=== PATIENT | female | born 1945 | race Caucasian/White ===

== ENCOUNTER 2016-11-01 05:23 | Emergency (ER) | payer OTHER ==
[~2016-11-01] VITALS: Ht 167.6 cm; Wt 127.0 kg
[~2016-11-01 05:23] MED LIST: NORPTMEDS CO
[2016-11-01 06:03] LABS: Basophils # (auto) 0 uL; Basophils % (auto) 0.1 % (0.0-2.0); Eosinophils # (auto) 0.2 uL; Eosinophils % (auto) 2.1 % (0.0-7.0); Hematocrit 33.3 % (36.0-46.0); Hemoglobin 11.1 g/dL (12.2-16.2); Mean Corpuscular Hemoglobin 30.6 pg (28.0-32.0); Mean Corpuscular Hgb Conc. 33.3 g/dL (32.0-36.0); Mean Corpuscular Volume 91.6 fL (80.0-100.0); Mean Platelet Volume 7.8 fL (7.4-10.4); Monocytes # (auto) 0.8 uL; Monocytes % (auto) 7.9 % (0.0-12.0); Neutrophils # (auto) 8.3 uL; Neutrophils % (auto) 79.9 % (37.0-80.0); Platelet Count (auto) 409 10^3/uL (140-450); Red Cell Distribution Width 14.6 % (11.6-16.0); White Blood Cell 10.3 10^3/uL (4.4-10.8)
[2016-11-01 06:22] LABS: INR 0.99 (0.9-1.15); Partial Thromboplastin Time 29.4 sec (22.64-33.71); Prothrombin Time 10.8 sec (9.37-12.3)
[2016-11-01 06:33] LABS: Albumin 2.3 g/dL (3.4-5.0); Amylase 12 U/L (25-115); Anion Gap 13 (5-15); Aspartate Aminotransferase 9 U/L (15-37); BUN/Creatinine Ratio 11.7; Blood Urea Nitrogen 13 mg/dL (7-18); Calcium 8.4 mg/dL (8.5-10.1); Carbon Dioxide 26 mmol/L (21-32); Chloride 103 mmol/L (98-107); GFR African American 63 mL/min; GFR Non-African American 52 mL/min; Glucose 96 mg/dL (74-106); Sodium 142 mmol/L (136-145)
[2016-11-01 06:38] LABS: Alkaline Phosphatase 83 U/L (45-117); Bilirubin, Total 0.2 mg/dL (0.2-1.0); Total Protein 7.2 g/dL (6.4-8.2)
[2016-11-01 08:48] VITALS: BP 143/80
== END 2016-11-01 09:14 | disposition home or self-care (01) ==
LOC: ER 05:23 → EDBD 05:23 → ER 09:14
DX: K43.5 Parastomal hernia without obstruction or gangrene (principal); M19.90 Unspecified osteoarthritis, unspecified site; E78.5 Hyperlipidemia, unspecified; I10 Essential (primary) hypertension; E07.9 Disorder of thyroid, unspecified; Z90.49 Acquired absence of other specified parts of digestive tract; Z88.1 Allergy status to other antibiotic agents; Z93.3 Colostomy status; E66.01 Morbid (severe) obesity due to excess calories; Z68.42 Body mass index [BMI] 45.0-49.9, adult; Z87.19 Personal history of other diseases of the digestive system
CPT/HCPCS: 36415; 74176; 80053; 82150; 83605; 83690; 84484; 85025; 85610; 85730; 87040

== ENCOUNTER 2016-11-16 14:40 | Emergency (ER) | payer OTHER ==
[~2016-11-16] VITALS: Ht 165.1 cm; Wt 127.0 kg
[2016-11-16 15:38] LABS: Basophils # (auto) 0.1 uL; Basophils % (auto) 0.6 % (0.0-2.0); CONDITION AutoValidated; Eosinophils # (auto) 0.2 uL; Eosinophils % (auto) 1.5 % (0.0-7.0); Hematocrit 38.8 % (36.0-46.0); Hemoglobin 12.8 g/dL (12.2-16.2); Lymphocytes # (auto) 1.1 uL; Lymphocytes % (auto) 11.1 % (10.0-50.0); Mean Corpuscular Hgb Conc. 32.9 g/dL (32.0-36.0); Mean Corpuscular Volume 91.2 fL (80.0-100.0); Mean Platelet Volume 8.5 fL (7.4-10.4); Monocytes % (auto) 9.5 % (0.0-12.0); Neutrophils # (auto) 7.9 uL; Neutrophils % (auto) 77.3 % (37.0-80.0); Platelet Count (auto) 438 10^3/uL (140-450); Red Cell Distribution Width 15.4 % (11.6-16.0); White Blood Cell 10.3 10^3/uL (4.4-10.8)
[2016-11-16 16:00] LABS: BUN/Creatinine Ratio 15.4; Calcium 8.6 mg/dL (8.5-10.1)
[2016-11-16 19:34] VITALS: BP 133/72
[2016-11-16 21:47] LABS: Urine Bilirubin Negative (Negative); Urine Color Yellow (Yellow); Urine Glucose Normal (Normal); Urine Ketone Negative (Negative); Urine Mucus FEW (None Seen); Urine Nitrite Negative (Negative); Urine RBC 1 /hpf (0 - 4); Urine Squamous Epithelial Cell MOD /hpf (<5); Urine Urobilinogen Normal (Negative); Urine pH 5.5 (5.0-8.0)
[2016-11-16 22:04] LABS: Urine Blood 1+ /uL (Negative)
== END 2016-11-16 21:30 | disposition home or self-care (01) ==
LOC: EDBD 14:40 → ER 14:40
DX: L03.311 Cellulitis of abdominal wall (principal); Z79.899 Other long term (current) drug therapy; Z90.49 Acquired absence of other specified parts of digestive tract; Z97.10 Presence of artificial limb (complete) (partial), unspecified
CPT/HCPCS: 36415; 80048; 81001; 85025

== ENCOUNTER 2018-05-20 08:06 | Emergency (ER) | payer OTHER ==
[~2018-05-20] VITALS: Ht 165.1 cm; Wt 113.4 kg
[2018-05-20 09:16] LABS: Basophils # (auto) 0.1 uL; Basophils % (auto) 0.6 % (0.0-2.0); Eosinophils # (auto) 0 uL; Eosinophils % (auto) 0.3 % (0.0-7.0); Hematocrit 38.9 % (36.0-46.0); Hemoglobin 12.6 g/dL (12.2-16.2); Lymphocytes # (auto) 1.3 uL; Lymphocytes % (auto) 8.2 % (10.0-50.0); Mean Corpuscular Hemoglobin 28.6 pg (28.0-32.0); Mean Corpuscular Hgb Conc. 32.5 g/dL (32.0-36.0); Mean Corpuscular Volume 87.9 fL (80.0-100.0); Monocytes % (auto) 6.4 % (0.0-12.0); Neutrophils # (auto) 13.3 uL; Neutrophils % (auto) 84.5 % (37.0-80.0); Platelet Count (auto) 447 10^3/uL (140-450); Red Blood Cells 4.43 10^6/uL (4.0-5.20); Red Cell Distribution Width 15.5 % (11.8-14.3); White Blood Cell 15.8 10^3/uL (4.4-10.8)
[2018-05-20 09:24] LABS: INR 0.93 (0.9-1.15); Partial Thromboplastin Time 28.9 sec (23.78-33.04)
[2018-05-20 09:27] LABS: Albumin 2.6 g/dL (3.4-5.0); BUN/Creatinine Ratio 21.7; Calcium 8.3 mg/dL (8.5-10.1)
[2018-05-20 09:29] LABS: Bilirubin, Total 0.2 mg/dL (0.2-1.0); Total Protein 7.5 g/dL (6.4-8.2)
[2018-05-20] MEDS ORDERED: HYDROcodone-ACET 10/325MG TAB PO ONE (09:30)
[2018-05-20] MEDS ORDERED: KETOROLAC TROMETH 30 MG/ML 1ML VIAL IV ONE (09:30)
[2018-05-20] MEDS ORDERED: PIPERACILLIN-TAZOB 3.375GM 100 ML IV ONE (11:30)
[2018-05-20 12:43] VITALS: BP 126/75
== END 2018-05-20 13:24 | disposition short-term general hospital (02) ==
LOC: EDBD 08:06 → ER 08:06
DX: K56.609 Unspecified intestinal obstruction, unspecified as to partial versus complete obstruction (principal); M19.90 Unspecified osteoarthritis, unspecified site; E78.5 Hyperlipidemia, unspecified; I10 Essential (primary) hypertension; E07.89 Other specified disorders of thyroid; Z90.49 Acquired absence of other specified parts of digestive tract; Z90.710 Acquired absence of both cervix and uterus; Z90.89 Acquired absence of other organs; Z88.1 Allergy status to other antibiotic agents
CPT/HCPCS: 36415; 74176; 80053; 82150; 83605; 83690; 85025; 85610; 85730; 87040; 96365; 96375; 99285; J1885; J2543

== ENCOUNTER 2018-06-17 16:46 | Emergency (ER) | payer OTHER ==
[~2018-06-17] VITALS: Ht 160 cm; Wt 136.1 kg
[2018-06-17] MEDS ORDERED: SODIUM CHLORIDE 0.9% 1,000 ML IV ONE (17:02)
[2018-06-17 18:05] LABS: Albumin 2.8 g/dL (3.4-5.0); Anion Gap 11 (5-15); Blood Urea Nitrogen 19 mg/dL (7-18); Calcium 8.6 mg/dL (8.5-10.1); Carbon Dioxide 19 mmol/L (21-32); Chloride 104 mmol/L (98-107); Glucose 102 mg/dL (74-106); Potassium 3.9 mmol/L (3.5-5.1); Sodium 134 mmol/L (136-145)
[2018-06-17 18:08] LABS: Alanine Aminotransferase 26 U/L (13-56); Alkaline Phosphatase 141 U/L (45-117); Aspartate Aminotransferase 16 U/L (15-37); BUN/Creatinine Ratio 18.6; Bilirubin, Total 0.3 mg/dL (0.2-1.0); GFR African American > 60 mL/min; GFR Non-African American 57 mL/min; Total Protein 8.1 g/dL (6.4-8.2)
[2018-06-17 18:21] LABS: Basophils # (auto) 0.1 uL; Basophils % (auto) 0.6 % (0.0-2.0); Eosinophils # (auto) 0.1 uL; Hematocrit 40.7 % (36.0-46.0); Hemoglobin 13.2 g/dL (12.2-16.2); Lymphocytes # (auto) 2.2 uL; Lymphocytes % (auto) 19.2 % (10.0-50.0); Mean Corpuscular Hemoglobin 29.1 pg (28.0-32.0); Mean Corpuscular Hgb Conc. 32.5 g/dL (32.0-36.0); Mean Corpuscular Volume 89.4 fL (80.0-100.0); Monocytes % (auto) 9.1 % (0.0-12.0); Neutrophils # (auto) 7.9 uL; Neutrophils % (auto) 70.1 % (37.0-80.0); Nucleated Red Blood Cells % 0.1 %; Platelet Count (auto) 277 10^3/uL (140-450); Red Blood Cells 4.55 10^6/uL (4.0-5.20); White Blood Cell 11.3 10^3/uL (4.4-10.8)
[2018-06-17 19:02] LABS: Urine Bacteria NONE SEEN /hpf (None Seen); Urine Blood Negative /uL (Negative); Urine Mucus FEW (None Seen); Urine Specific Gravity 1.039 (1.001-1.035); Urine WBC 5 /hpf (0 - 5)
[2018-06-17] MEDS ORDERED: HYDROcodone-ACET 10/325MG TAB PO ONE (19:45)
[2018-06-17] MEDS ORDERED: PROMETHAZINE HCL 25 MG/ML 1ML IV ONE (19:45)
[2018-06-17 22:30] VITALS: BP 145/70
== END 2018-06-17 22:50 | disposition short-term general hospital (02) ==
LOC: EDBD 16:46 → ER 16:46
DX: M17.11 Unilateral primary osteoarthritis, right knee (principal); E78.5 Hyperlipidemia, unspecified; I10 Essential (primary) hypertension; Z88.8 Allergy status to other drugs, medicaments and biological substances
CPT/HCPCS: 36415; 51702; 71045; 73700; 80053; 81001; 84484; 85025; 96374; 99285; J2550; J7030

== ENCOUNTER 2019-02-14 15:21 | Emergency (ER) | payer OTHER ==
[~2019-02-14] VITALS: Ht 162.6 cm; Wt 136.1 kg
[2019-02-14 16:13] LABS: Basophils # (auto) 0.1 uL; Basophils % (auto) 0.7 % (0.0-2.0); Eosinophils # (auto) 0.1 uL; Eosinophils % (auto) 1.1 % (0.0-7.0); Hematocrit 39.1 % (36.0-46.0); Hemoglobin 12.6 g/dL (12.2-16.2); Lymphocytes # (auto) 1.4 uL; Lymphocytes % (auto) 14.5 % (10.0-50.0); Mean Corpuscular Hemoglobin 28.8 pg (28.0-32.0); Mean Corpuscular Hgb Conc. 32.2 g/dL (32.0-36.0); Mean Corpuscular Volume 89.5 fL (80.0-100.0); Monocytes # (auto) 0.9 uL; Monocytes % (auto) 8.8 % (0.0-12.0); Neutrophils # (auto) 7.2 uL; Neutrophils % (auto) 74.9 % (37.0-80.0); Platelet Count (auto) 324 10^3/uL (140-450); Red Blood Cells 4.37 10^6/uL (4.0-5.20); White Blood Cell 9.7 10^3/uL (4.4-10.8)
[2019-02-14 16:30] LABS: Albumin 2.7 g/dL (3.4-5.0); Calcium 8.6 mg/dL (8.5-10.1); Potassium 4.5 mmol/L (3.5-5.1)
[2019-02-14 16:33] LABS: BUN/Creatinine Ratio 19.8; Bilirubin, Total 0.2 mg/dL (0.2-1.0); Total Protein 7.5 g/dL (6.4-8.2)
[2019-02-14 21:37] VITALS: BP 148/76
[2019-02-14] MEDS ORDERED: ONDANSETRON ODT 4 MG TAB PO ONE (22:00)
[2019-02-14] MEDS ORDERED: HYDROmorphone HCL 2 MG/ML VL IM ONE (22:00)
== END 2019-02-14 23:47 | disposition home or self-care (01) ==
LOC: EDBD 15:21 → ER 15:52
DX: S86.912A Strain of unspecified muscle(s) and tendon(s) at lower leg level, left leg, initial encounter (principal); M17.12 Unilateral primary osteoarthritis, left knee; E78.5 Hyperlipidemia, unspecified; I10 Essential (primary) hypertension; Z90.49 Acquired absence of other specified parts of digestive tract; Z90.710 Acquired absence of both cervix and uterus; Z88.6 Allergy status to analgesic agent; X58.XXXA Exposure to other specified factors, initial encounter; Y93.89 Activity, other specified; Y92.89 Other specified places as the place of occurrence of the external cause; Y99.8 Other external cause status
CPT/HCPCS: 36415; 80053; 85025; 93971; 96372; 99284; J1170; Q0162

== ENCOUNTER 2019-02-16 09:43 | Emergency (ER) | payer OTHER ==
[~2019-02-16] VITALS: Ht 170.2 cm; Wt 158.8 kg
[2019-02-16] MEDS ORDERED: ONDANSETRON HCL 4 MG/2 ML VIAL IV ONE (10:45)
[2019-02-16] MEDS ORDERED: HYDROmorphone HCL 2 MG/ML VL IV ONE (10:45)
[2019-02-16 12:44] LABS: Basophils # (auto) 0.1 uL; Basophils % (auto) 0.5 % (0.0-2.0); Eosinophils # (auto) 0.2 uL; Eosinophils % (auto) 1.2 % (0.0-7.0); Hematocrit 38.5 % (36.0-46.0); Hemoglobin 12.1 g/dL (12.2-16.2); Lymphocytes # (auto) 1.2 uL; Lymphocytes % (auto) 9.4 % (10.0-50.0); Mean Corpuscular Hemoglobin 28.5 pg (28.0-32.0); Mean Corpuscular Hgb Conc. 31.5 g/dL (32.0-36.0); Mean Corpuscular Volume 90.4 fL (80.0-100.0); Monocytes # (auto) 1.2 uL; Monocytes % (auto) 9.2 % (0.0-12.0); Neutrophils # (auto) 10.5 uL; Neutrophils % (auto) 79.7 % (37.0-80.0); Platelet Count (auto) 298 10^3/uL (140-450); Red Blood Cells 4.26 10^6/uL (4.0-5.20); Red Cell Distribution Width 16.5 % (11.8-14.3); White Blood Cell 13.1 10^3/uL (4.4-10.8)
[2019-02-16 13:03] LABS: INR 0.94 (0.9-1.15)
[2019-02-16 13:05] LABS: Alanine Aminotransferase 15 U/L (13-56); Albumin 2.6 g/dL (3.4-5.0); Anion Gap 7 (5-15); Aspartate Aminotransferase 12 U/L (15-37); Blood Urea Nitrogen 19 mg/dL (7-18); Calcium 8.7 mg/dL (8.5-10.1); Carbon Dioxide 28 mmol/L (21-32); Chloride 106 mmol/L (98-107); Glucose 101 mg/dL (74-106); Potassium 4.4 mmol/L (3.5-5.1); Sodium 141 mmol/L (136-145)
[2019-02-16 13:10] LABS: Alkaline Phosphatase 96 U/L (45-117); BUN/Creatinine Ratio 18.8; Bilirubin, Total 0.3 mg/dL (0.2-1.0); GFR African American 69 mL/min; GFR Non-African American 57 mL/min; Total Protein 7.3 g/dL (6.4-8.2)
[2019-02-16 14:06] VITALS: BP 132/65
== END 2019-02-16 14:19 | disposition short-term general hospital (02) ==
LOC: ER 09:43 → EDBD 09:43 → ER 14:19
DX: S72.402A Unspecified fracture of lower end of left femur, initial encounter for closed fracture (principal); E78.5 Hyperlipidemia, unspecified; I10 Essential (primary) hypertension; Z90.49 Acquired absence of other specified parts of digestive tract; Z90.710 Acquired absence of both cervix and uterus; Z88.8 Allergy status to other drugs, medicaments and biological substances; X58.XXXA Exposure to other specified factors, initial encounter; Y93.89 Activity, other specified; Y92.89 Other specified places as the place of occurrence of the external cause; Y99.8 Other external cause status
CPT/HCPCS: 29505; 36415; 51702; 73552; 73560; 73590; 80053; 83880; 84484; 85025; 85610; 85730; 96374; 96375; 99285; J1170; J2405

== ENCOUNTER 2020-11-29 14:40 | Emergency (ER) | payer OTHER ==
[~2020-11-29] VITALS: Ht 162.6 cm; Wt 81.6 kg
[2020-11-29] MEDS ORDERED: SODIUM CHLORIDE 0.9% 1,000 ML IV ONE ×2 (15:15)
[2020-11-29] MEDS ORDERED: cefTRIAXone 1GM/50ML D5W 50 ML IV ONE (15:15)
[2020-11-29] MEDS ORDERED: ONDANSETRON HCL 4 MG/2 ML VIAL ONE (15:50)
[2020-11-29] MEDS ORDERED: ONDANSETRON HCL 4 MG/2 ML VIAL IV ONE (16:00)
[2020-11-29 16:08] LABS: Basophils # (auto) 0.1 10 ^3/uL (0-0.2); Basophils % (auto) 0.8 % (0.0-2.0); Eosinophils # (auto) 0.1 10 ^3/uL (0-0.8); Eosinophils % (auto) 1.3 % (0.0-7.0); Hematocrit 36.9 % (36.0-46.0); Hemoglobin 12.2 g/dL (12.2-16.2); Lymphocytes % (auto) 9.5 % (10.0-50.0); Mean Corpuscular Hemoglobin 30.2 pg (28.0-32.0); Mean Corpuscular Hgb Conc. 33.1 g/dL (32.0-36.0); Monocytes % (auto) 9.1 % (0.0-12.0); Neutrophils # (auto) 8.4 10 ^3/uL (1.6-8.6); Neutrophils % (auto) 79.3 % (37.0-80.0); Platelet Count (auto) 309 10^3/uL (140-450); Red Blood Cells 4.05 10^6/uL (4.0-5.20); Red Cell Distribution Width 14.9 % (11.8-14.3); White Blood Cell 10.6 10^3/uL (4.4-10.8)
[2020-11-29 16:23] LABS: Alanine Aminotransferase 20 U/L (13-56); Albumin 2.6 g/dL (3.4-5.0); Anion Gap 5 (5-15); Aspartate Aminotransferase 7 U/L (15-37); BUN/Creatinine Ratio 18.4; Blood Urea Nitrogen 18 mg/dL (7-18); Calcium 8.8 mg/dL (8.5-10.1); Carbon Dioxide 31 mmol/L (21-32); Chloride 100 mmol/L (98-107); GFR African American 72 mL/min; GFR Non-African American 59 mL/min; Glucose 117 mg/dL (74-106); Potassium 4.6 mmol/L (3.5-5.1); Sodium 136 mmol/L (136-145)
[2020-11-29 16:25] LABS: Lactic Acid w/Reflex 2.1 mmol/L (0.4-2.0)
[2020-11-29 17:00] LABS: Alkaline Phosphatase 109 U/L (45-117); Bilirubin, Total 0.2 mg/dL (0.2-1.0); Total Protein 7.3 g/dL (6.4-8.2)
[2020-11-29 17:15] LABS: Urine Bacteria NONE SEEN /hpf (None Seen); Urine Blood Negative /uL (Negative); Urine WBC 2 /hpf (0 - 5)
[2020-11-29] MEDS ORDERED: PROCHLORPERAZINE EDISYLATE 5 MG/ML 2ML VIAL IV ONE (18:45)
[2020-11-29 19:10] LABS: CRP High Sensitivity 5.14 mg/dL (< 0.3)
[2020-11-29 19:41] VITALS: BP 137/70
== END 2020-11-29 20:30 | disposition short-term general hospital (02) ==
LOC: ER 14:40 → EDBD 14:40 → ER 20:30
DX: L03.311 Cellulitis of abdominal wall (principal); R06.02 Shortness of breath; I10 Essential (primary) hypertension; E78.5 Hyperlipidemia, unspecified; Z90.49 Acquired absence of other specified parts of digestive tract; Z90.710 Acquired absence of both cervix and uterus; Z90.89 Acquired absence of other organs; Z20.822 Contact with and (suspected) exposure to COVID-19
CPT/HCPCS: 36415; 71045; 74176; 80053; 81001; 82728; 83605; 84484; 85025; 85049; 86141; 87040; 87426; 93005; 96365; 96375; 99285; J0696; J0780; J2405; J7030

== ENCOUNTER 2021-04-28 17:10 | Emergency (ER) | payer OTHER ==
[~2021-04-28] VITALS: Ht 162.6 cm; Wt 136.1 kg
[2021-04-28] MEDS ORDERED: ONDANSETRON HCL 4 MG/2 ML VIAL IV ONE ×2 (17:45→20:15)
[2021-04-28] MEDS ORDERED: MORPHINE SULFATE 4 MG/ML SYR/VIAL IV ONE (17:45)
[2021-04-28] MEDS ORDERED: PANTOPRAZOLE 40 MG/10 ML VIAL INJ IV ONE (17:45)
[2021-04-28 18:35] LABS: Urine Bacteria NONE SEEN /hpf (None Seen); Urine Blood TRACE /uL (Negative); Urine Mucus FEW (None Seen); Urine Specific Gravity 1.022 (1.001-1.035); Urine WBC 5 /hpf (0 - 5)
[2021-04-28 19:17] LABS: Basophils # (auto) 0.1 10 ^3/uL (0-0.2); Basophils % (auto) 0.9 % (0.0-2.0); Eosinophils # (auto) 0.2 10 ^3/uL (0-0.8); Eosinophils % (auto) 2.4 % (0.0-7.0); Hematocrit 39.5 % (36.0-46.0); Hemoglobin 12.7 g/dL (12.2-16.2); Lymphocytes % (auto) 11.4 % (10.0-50.0); Mean Corpuscular Hemoglobin 30.1 pg (28.0-32.0); Mean Corpuscular Hgb Conc. 32.2 g/dL (32.0-36.0); Mean Corpuscular Volume 93.6 fL (80.0-100.0); Monocytes # (auto) 0.8 10 ^3/uL (0-1.3); Monocytes % (auto) 8.9 % (0.0-12.0); Neutrophils # (auto) 6.8 10 ^3/uL (1.6-8.6); Neutrophils % (auto) 76.4 % (37.0-80.0); Red Blood Cells 4.22 10^6/uL (4.0-5.20); Red Cell Distribution Width 14.7 % (11.8-14.3); White Blood Cell 8.9 10^3/uL (4.4-10.8)
[2021-04-28 19:43] LABS: Albumin 2.9 g/dL (3.4-5.0); Calcium 9.3 mg/dL (8.5-10.1); Magnesium 1.8 mg/dL (1.6-2.6); Potassium 4.6 mmol/L (3.5-5.1)
[2021-04-28 19:46] LABS: BUN/Creatinine Ratio 26.7; Bilirubin, Total 0.2 mg/dL (0.2-1.0); Total Protein 8.1 g/dL (6.4-8.2)
[2021-04-28] MEDS ORDERED: cefTRIAXone 1GM/50ML D5W 50 ML IV ONE (20:15)
[2021-04-28] MEDS ORDERED: KETOROLAC TROMETH 30 MG/ML 1ML VIAL IV ONE ×2 (20:15→23:30)
[2021-04-29 01:20] VITALS: BP 147/65
== END 2021-04-29 02:12 | disposition short-term general hospital (02) ==
LOC: EDBD 17:10 → EDUNIT# 17:10 → ER 17:10
DX: R10.11 Right upper quadrant pain (principal); R10.12 Left upper quadrant pain; J44.9 Chronic obstructive pulmonary disease, unspecified; E78.5 Hyperlipidemia, unspecified; I10 Essential (primary) hypertension; E03.9 Hypothyroidism, unspecified; Z90.49 Acquired absence of other specified parts of digestive tract; Z90.710 Acquired absence of both cervix and uterus; Z90.89 Acquired absence of other organs; Z88.8 Allergy status to other drugs, medicaments and biological substances; Z20.822 Contact with and (suspected) exposure to COVID-19
CPT/HCPCS: 36415; 74176; 80053; 81001; 83690; 83735; 84484; 85025; 87426; 93005; 96365; 96366; 96375; 96376; 99285; C9113; J0696; J1885; J2270; J2405

== ENCOUNTER 2021-05-06 16:30 | Emergency (ER) | payer OTHER ==
[~2021-05-06] VITALS: Ht 154.9 cm; Wt 127.0 kg
[2021-05-06] MEDS ORDERED: MORPHINE SULFATE 4 MG/ML SYR/VIAL IV ONE (18:00)
[2021-05-06] MEDS ORDERED: ONDANSETRON HCL 4 MG/2 ML VIAL IV ONE (18:00)
[2021-05-06 18:59] LABS: Basophils # (auto) 0 10 ^3/uL (0-0.2); Basophils % (auto) 0.3 % (0.0-2.0); Eosinophils # (auto) 0.2 10 ^3/uL (0-0.8); Eosinophils % (auto) 2.6 % (0.0-7.0); Hematocrit 33.3 % (36.0-46.0); Hemoglobin 10.7 g/dL (12.2-16.2); Lymphocytes # (auto) 0.8 10 ^3/uL (0.4-5.4); Lymphocytes % (auto) 11.5 % (10.0-50.0); Mean Corpuscular Hgb Conc. 32.3 g/dL (32.0-36.0); Mean Corpuscular Volume 92.9 fL (80.0-100.0); Monocytes # (auto) 1.1 10 ^3/uL (0-1.3); Neutrophils # (auto) 4.7 10 ^3/uL (1.6-8.6); Neutrophils % (auto) 69.6 % (37.0-80.0); Nucleated Red Blood Cells % 0.1 %; Red Blood Cells 3.59 10^6/uL (4.0-5.20); Red Cell Distribution Width 14.8 % (11.8-14.3); White Blood Cell 6.7 10^3/uL (4.4-10.8)
[2021-05-06 19:16] LABS: Albumin 2.2 g/dL (3.4-5.0); Calcium 8.4 mg/dL (8.5-10.1); Potassium 4.4 mmol/L (3.5-5.1)
[2021-05-06 19:22] LABS: Bilirubin, Total 0.2 mg/dL (0.2-1.0); Total Protein 6.8 g/dL (6.4-8.2)
[2021-05-06] MEDS ORDERED: ACETAMINOPHEN 325 MG TAB PO ONE ×2 (21:00→23:30)
[2021-05-06 21:20] LABS: Urine WBC None Seen /hpf (0 - 5)
[2021-05-06 21:31] LABS: Urine Bacteria FEW /hpf (None Seen); Urine Blood TRACE /uL (Negative); Urine Specific Gravity 1.018 (1.001-1.035)
[2021-05-07 01:55] VITALS: BP 132/65
== END 2021-05-07 02:20 | disposition home or self-care (01) ==
LOC: ER 16:30 → EDBD 16:30 → ER 05-07 02:20
DX: U07.1 COVID-19 (principal); I10 Essential (primary) hypertension; E03.9 Hypothyroidism, unspecified; J44.9 Chronic obstructive pulmonary disease, unspecified; E78.5 Hyperlipidemia, unspecified; Z90.49 Acquired absence of other specified parts of digestive tract; Z90.710 Acquired absence of both cervix and uterus; Z90.89 Acquired absence of other organs; Z88.8 Allergy status to other drugs, medicaments and biological substances
CPT/HCPCS: 36415; 71045; 80053; 81001; 83735; 84484; 85025; 87426; 93005; 96374; 96375; 99285; J2270; J2405

== ENCOUNTER 2021-06-01 10:17 | Emergency (ER) | payer OTHER ==
[~2021-06-01] VITALS: Ht 162.6 cm; Wt 136.1 kg
[2021-06-01 11:18] LABS: Basophils # (auto) 0.1 10 ^3/uL (0-0.2); Basophils % (auto) 1.1 % (0.0-2.0); Eosinophils # (auto) 0.2 10 ^3/uL (0-0.8); Eosinophils % (auto) 2.4 % (0.0-7.0); Hematocrit 34.1 % (36.0-46.0); Hemoglobin 11.1 g/dL (12.2-16.2); Lymphocytes # (auto) 1.3 10 ^3/uL (0.4-5.4); Lymphocytes % (auto) 15.5 % (10.0-50.0); Mean Corpuscular Hemoglobin 30.2 pg (28.0-32.0); Mean Corpuscular Hgb Conc. 32.7 g/dL (32.0-36.0); Mean Corpuscular Volume 92.5 fL (80.0-100.0); Monocytes # (auto) 0.7 10 ^3/uL (0-1.3); Monocytes % (auto) 8.6 % (0.0-12.0); Neutrophils # (auto) 6.1 10 ^3/uL (1.6-8.6); Neutrophils % (auto) 72.4 % (37.0-80.0); Nucleated Red Blood Cells % 0.1 %; Red Blood Cells 3.68 10^6/uL (4.0-5.20); Red Cell Distribution Width 15.3 % (11.8-14.3); White Blood Cell 8.5 10^3/uL (4.4-10.8)
[2021-06-01 11:24] LABS: Albumin 2.8 g/dL (3.4-5.0); Calcium 9.4 mg/dL (8.5-10.1); Potassium 4.5 mmol/L (3.5-5.1)
[2021-06-01 11:28] LABS: BUN/Creatinine Ratio 26.7; Bilirubin, Total 0.2 mg/dL (0.2-1.0); Total Protein 7.8 g/dL (6.4-8.2)
[2021-06-01] MEDS ORDERED: MORPHINE SULFATE 4 MG/ML SYR/VIAL IV ONE (12:15)
[2021-06-01] MEDS ORDERED: ONDANSETRON HCL 4 MG/2 ML VIAL IV ONE ×2 (12:15→19:00)
[2021-06-01] MEDS ORDERED: METOCLOPRAMIDE HCL 5MG/ml INJ 2ml VIAL IV ONE (15:15)
[2021-06-01] MEDS ORDERED: HYDROmorphone HCL 2 MG/ML VL IV ONE ×2 (15:15→19:00)
[2021-06-01 20:52] LABS: Urine Bacteria FEW /hpf (None Seen); Urine Blood Negative /uL (Negative); Urine Hyaline Cast FEW /lpf (0 - 2); Urine Mucus FEW (None Seen); Urine Specific Gravity 1.019 (1.001-1.035); Urine WBC 125 /hpf (0 - 5)
[2021-06-02] MEDS ORDERED: MORPHINE SULFATE INJECTION 2 MG/ML SYRG IV ONE
[2021-06-02] MEDS ORDERED: METOCLOPRAMIDE HCL 5MG/ml INJ 2ml VIAL IV ONE
[2021-06-02] MEDS ORDERED: cefTRIAXone 1GM/50ML D5W 50 ML IV ONE (00:30)
[2021-06-02] MEDS ORDERED: SODIUM CHLORIDE 0.9% 1,000 ML IV ONE (00:45)
[2021-06-02] MEDS ORDERED: TAMSULOSIN HYDROCHLORIDE 0.4 MG CAP PO ONE (00:45)
[2021-06-02] MEDS ORDERED: FUROSEMIDE 20 MG/2 ML VIAL IV ONE (00:45)
[2021-06-02] MEDS ORDERED: LORazepam 2MG/ML-1ML VIAL IV ONE (04:00)
[2021-06-02 09:50] VITALS: BP 157/71
== END 2021-06-02 10:16 | disposition short-term general hospital (02) ==
LOC: EDBD 10:17 → ER 10:17
DX: N13.4 Hydroureter (principal); J44.9 Chronic obstructive pulmonary disease, unspecified; E78.5 Hyperlipidemia, unspecified; I10 Essential (primary) hypertension; Z90.49 Acquired absence of other specified parts of digestive tract; Z90.710 Acquired absence of both cervix and uterus; Z20.822 Contact with and (suspected) exposure to COVID-19
CPT/HCPCS: 36415; 74176; 80053; 81001; 83690; 85025; 87426; 93005; 96365; 96375; 96376; 99285; J0696; J1170; J1940; J2060; J2270; J2405; J2765; J7030

== ENCOUNTER 2021-06-08 22:30 | Emergency (ER) | payer OTHER ==
[~2021-06-08] VITALS: Ht 162.6 cm; Wt 127.0 kg
[2021-06-09] MEDS ORDERED: AZITHROMYCIN 500MG/ 250ML 250 ML IV ONE (00:45)
[2021-06-09] MEDS ORDERED: cefTRIAXone 1GM/50ML D5W 50 ML IV ONE (00:45)
[2021-06-09] MEDS ORDERED: ONDANSETRON HCL 4 MG/2 ML VIAL IV ONE (03:00)
[2021-06-09] MEDS ORDERED: MORPHINE SULFATE 4 MG/ML SYR/VIAL IV ONE (03:15)
[2021-06-09 03:31] LABS: Basophils # (auto) 0.3 10 ^3/uL (0-0.2); Basophils % (auto) 1.9 % (0.0-2.0); Eosinophils # (auto) 0.3 10 ^3/uL (0-0.8); Eosinophils % (auto) 2.3 % (0.0-7.0); Hematocrit 35.6 % (36.0-46.0); Hemoglobin 11.3 g/dL (12.2-16.2); Lymphocytes # (auto) 1.7 10 ^3/uL (0.4-5.4); Lymphocytes % (auto) 12.1 % (10.0-50.0); Mean Corpuscular Hgb Conc. 31.8 g/dL (32.0-36.0); Mean Corpuscular Volume 94.3 fL (80.0-100.0); Monocytes # (auto) 1.1 10 ^3/uL (0-1.3); Monocytes % (auto) 7.8 % (0.0-12.0); Neutrophils # (auto) 10.9 10 ^3/uL (1.6-8.6); Neutrophils % (auto) 75.9 % (37.0-80.0); Nucleated Red Blood Cells % 0.1 %; Red Blood Cells 3.78 10^6/uL (4.0-5.20); Red Cell Distribution Width 15.9 % (11.8-14.3); White Blood Cell 14.4 10^3/uL (4.4-10.8)
[2021-06-09 04:49] VITALS: BP 150/80
== END 2021-06-09 05:16 | disposition short-term general hospital (02) ==
LOC: EDBD 22:30 → ER 22:32
DX: R10.13 Epigastric pain (principal); R11.2 Nausea with vomiting, unspecified; J44.9 Chronic obstructive pulmonary disease, unspecified; Z90.49 Acquired absence of other specified parts of digestive tract; E78.5 Hyperlipidemia, unspecified; E83.59 Other disorders of calcium metabolism; N29 Other disorders of kidney and ureter in diseases classified elsewhere
CPT/HCPCS: 36415; 71045; 83880; 84484; 85025; 93005; 96365; 96366; 96367; 96375; 99285; J0456; J0696; J2270; J2405

== ENCOUNTER 2021-09-01 11:17 | Inpatient (IN) | payer OTHER ==
[~2021-09-01] VITALS: Ht 170.2 cm; Wt 150.9 kg
[2021-09-01] VITALS (35 sets, daily range): BP systolic 88–162; BP diastolic 44–135
[2021-09-01] MEDS: BUDESONIDE (INHALATION) 0.5 MG/2 ML NEB NEB SCH (05:55)
[2021-09-01] MEDS ORDERED: ETOMIDATE (2MG/ML) 20ML VIAL IV ONE (11:19)
[2021-09-01] MEDS ORDERED: SUCCINYLCHOLINE CHLORIDE 20 MG/ML 10ML VIAL IV ONE (11:20)
[2021-09-01] MEDS ORDERED: PROPOFOL 100 ML IV ONE (11:37)
[2021-09-01] MEDS: MIDAZOLAM DRIP 50 mg/50mL 50 ML IV SCH ×2 (11:45→21:32)
[2021-09-01] MEDS: PROPOFOL 100 ML IV SCH ×3 (11:46→21:32)
[2021-09-01 12:25] LABS: Albumin 2.5 g/dL (3.4-5.0); BUN/Creatinine Ratio 11.7; Calcium 8.5 mg/dL (8.5-10.1); Magnesium 2.5 mg/dL (1.6-2.6); Potassium 5.5 mmol/L (3.5-5.1)
[2021-09-01 12:27] LABS: Lactic Acid w/Reflex 7.7 mmol/L (0.4-2.0)
[2021-09-01 12:29] LABS: Bilirubin, Total 0.3 mg/dL (0.2-1.0); Total Protein 7.7 g/dL (6.4-8.2)
[2021-09-01] MEDS ORDERED: cefTRIAXone 1GM/50ML D5W 50 ML IV ONE (13:30)
[2021-09-01] MEDS ORDERED: SODIUM CHLORIDE 0.9% 2,000 ML IV ONE (13:30)
[2021-09-01] MEDS ORDERED: SODIUM BICARBONATE 8.4% INJ 50ML SYRINGE IV ONE (13:45)
[2021-09-01] MEDS ORDERED: DEXTROSE (50%) 50ML SYRG IV PRN (13:45)
[2021-09-01] MEDS ORDERED: ALBUTEROL SULF 2.5 MG/0.5ML(0.5%) NEB SOLN NEB ONE ×2 (13:45→14:00)
[2021-09-01] MEDS ORDERED: CALCIUM CHL 100MG/ML 1,000 MG in D5W 5% 100 ML IV ONE (13:45)
[2021-09-01] MEDS ORDERED: DEXTROSE (50%) 50ML SYRG IV ONE (13:45)
[2021-09-01] MEDS ORDERED: SODIUM ZIRCONIUM CYCL 10 GM PAK PO ONE (13:45)
[2021-09-01] MEDS ORDERED: FUROSEMIDE 40 MG/4 ML VIAL IV ONE (13:45)
[2021-09-01] MEDS ORDERED: HEPARIN DRIP/D5W 100UNITS/ML 250 ML IV SCH (13:45)
[2021-09-01] MEDS ORDERED: NITROGLYCERIN 0.4 MG SL TAB SL PRN (13:45)
[2021-09-01] MEDS ORDERED: InsuLIN REG 1unit/0.01ml Soln (100units/ml) IV ONE (13:45)
[2021-09-01] MEDS ORDERED: HEPARIN SODIUM (PORCINE) 5000 UNITS/ML 1ML VIAL IV ONE (13:45)
[2021-09-01] MEDS ORDERED: MORPHINE SULFATE INJECTION 2 MG/ML SYRG IV PRN ×2 (13:45→14:00)
[2021-09-01] MEDS ORDERED: MULTIPLE VITAMINS W/ MINERALS TAB PO ONE (14:00)
[2021-09-01] MEDS ORDERED: VANCOMYCIN PER PHARMACY 0 MG IV SCH (14:00)
[2021-09-01] MEDS ORDERED: ACETYLCYSTEINE 10 %(100MG/ML) SOL 4ML NEB SCH (14:00)
[2021-09-01] MEDS ORDERED: hydrALAZINE HCL 20 MG/ML VL IV PRN (14:00)
[2021-09-01] MEDS ORDERED: LACTULOSE 20Gm/30ML SOLN PO PRN (14:00)
[2021-09-01] MEDS ORDERED: BUDESONIDE (INHALATION) 0.5 MG/2 ML NEB NEB ONE (14:00)
[2021-09-01] MEDS ORDERED: HYDROcodone-ACET 5/325MG TAB PO ONE (14:00)
[2021-09-01] MEDS ORDERED: SUCRALFATE 1 GM/10 ML ORAL SUSP PO ONE (14:00)
[2021-09-01] MEDS ORDERED: FOLIC ACID 1 MG TAB PO ONE (14:00)
[2021-09-01] MEDS ORDERED: SODIUM ZIRCONIUM CYCL 10 GM PAK PO SCH ×2 (14:00→22:00)
[2021-09-01] MEDS ORDERED: PIPERACILLIN-TAZOB 3.375GM 100 ML IV ONE (14:00)
[2021-09-01] MEDS ORDERED: ACETAMINOPHEN 325 MG TAB PO PRN (14:00)
[2021-09-01] MEDS ORDERED: HYDROcodone-ACET 5/325MG TAB PO PRN (14:00)
[2021-09-01] MEDS ORDERED: FERROUS SULFATE 325mg EC TAB PO ONE (14:00)
[2021-09-01] MEDS ORDERED: METOCLOPRAMIDE HCL 5MG/ml INJ 2ml VIAL IV PRN (14:00)
[2021-09-01] MEDS: SODIUM CHLORIDE 0.9% 1,000 ML IV SCH ×2 (14:00→21:33)
[2021-09-01] MEDS ORDERED: DOCUSATE SOD 100 MG CAP PO PRN (14:00)
[2021-09-01] MEDS ORDERED: PANTOPRAZOLE 40 MG/10 ML VIAL INJ IV ONE (14:00)
[2021-09-01] MEDS ORDERED: LORazepam 0.5 MG TAB PO PRN (14:00)
[2021-09-01] MEDS ORDERED: IPRATROPIUM BROM 0.5 MG/2.5ML INH SOL NEB SCH (14:00)
[2021-09-01] MEDS ORDERED: METOPROLOL SUCCINATE XL 50 MG TAB PO ONE (14:15)
[2021-09-01] MEDS ORDERED: LABETALOL HCL 5 MG/ML 4ML SYRINGE IV PRN (14:15)
[2021-09-01] MEDS ORDERED: ISOSORBIDE MONONITRATE ER 60 MG TAB PO ONE (14:15)
[2021-09-01] MEDS ORDERED: BUMETANIDE 2.5mg/10ml (0.25 mg/ml) INJ IV ONE (14:15)
[2021-09-01 14:25] LABS: Urine Bacteria NONE SEEN /hpf (None Seen); Urine Blood 2+ /uL (Negative); Urine WBC 4788 /hpf (0 - 5); Urine WBC Clumps PRESENT /hpf (None Seen)
[2021-09-01] MEDS ORDERED: IPRATROPIUM BROM 0.5 MG/2.5ML INH SOL NEB PRN (14:30)
[2021-09-01] MEDS ORDERED: ACETYLCYSTEINE 10 %(100MG/ML) SOL 4ML NEB PRN (14:30)
[2021-09-01 14:36] LABS: INR 1.37 (0.9-1.15); Partial Thromboplastin Time 23.1 sec (23.6-33.0)
[2021-09-01 14:56] LABS: Hematocrit 35.1 % (36.0-46.0); Mean Corpuscular Hemoglobin 29.9 pg (28.0-32.0); Mean Corpuscular Hgb Conc. 31.4 g/dL (32.0-36.0); Mean Corpuscular Volume 95.4 fL (80.0-100.0); Red Blood Cells 3.68 10^6/uL (4.0-5.20); Red Cell Distribution Width 16.3 % (11.8-14.3)
[2021-09-01 15:02] LABS: Urine Specific Gravity 1.018 (1.001-1.035)
[2021-09-01 15:05] LABS: Band Neutrophils % (manual) 0; Basophils % (manual) 0 (0.0-2.0); Blast Cells 0; Eosinophils % (manual) 0 (0-7); Metamyelocytes % 0; Myelocytes % 0; Promyelocytes % 0; Reactive Lymphocytes 0
[2021-09-01 15:14] LABS: Phosphorus 2.3 mg/dL (2.5-4.90)
[2021-09-01 15:16] LABS: Albumin 2.5 g/dL (3.4-5.0); BUN/Creatinine Ratio 14.3; Calcium 8.6 mg/dL (8.5-10.1); Potassium 4.6 mmol/L (3.5-5.1)
[2021-09-01 15:19] LABS: Bilirubin, Total 0.2 mg/dL (0.2-1.0); Total Protein 7.3 g/dL (6.4-8.2)
[2021-09-01 15:58] LABS: Lymphocytes % (manual) 8 (10.0-50.0); Monocytes % (manual) 6 (0-12)
[2021-09-01] MEDS: InsuLIN REG 1unit/0.01ml Soln (100units/ml) SC SCH ×2 (17:00→21:52)
[2021-09-01] MEDS: ACCU-CHEK COMFORT CURVE STRIP VI SCH ×2 (17:00→21:51)
[2021-09-01] MEDS ORDERED: AMIODARONE 450mg/250ml AE 250 ML IV SCH (17:15)
[2021-09-01] MEDS ORDERED: AMIODARONE HCL 150 MG in D5W 5% 100 ML IV ONE (17:15)
[2021-09-01] MEDS: PHENYLEPHRINE INJ 40 MG in SODIUM CHL 0.9% 246 ML IV SCH ×2 (17:15→20:00)
[2021-09-01] MEDS ORDERED: ALBUTEROL SULF 2.5 MG/0.5ML(0.5%) NEB SOLN NEB PRN (18:00)
[2021-09-01] MEDS ORDERED: FERROUS SULFATE 325mg EC TAB PO SCH (18:00)
[2021-09-01] MEDS: VANCOMYCIN 1GM/250ML 250 ML IV SCH (18:25)
[2021-09-01] MEDS: PIPERACILLIN-TAZOB 3.375GM 100 ML IV SCH (20:00)
[2021-09-01] MEDS ORDERED: NOREPINEPHRINE 8 MG/250ML KIT 250 ML IV ONE (20:24)
[2021-09-01] MEDS: NYSTATIN TOPICAL POWDER 15GM TOP SCH (21:51)
[2021-09-01] MEDS ORDERED: SUCRALFATE 1 GM/10 ML ORAL SUSP PO SCH (22:00)
[2021-09-01] MEDS: ATORVASTATIN 20 MG TAB PO SCH (22:00)
[2021-09-01] MEDS ORDERED: ISOSORBIDE MONONITRATE 20 MG TAB PO SCH (22:00)
[2021-09-01] MEDS: methylPREDNISolone SOD SUCC 40 MG/ML VL IV SCH (22:00)
[2021-09-01] MEDS ORDERED: traZODone HCL 50 MG TAB PO SCH (22:00)
[2021-09-02] VITALS (105 sets, daily range): BP systolic 88–167; BP diastolic 36–82
[2021-09-02 01:04] LABS: INR 1.03 (0.9-1.15); Partial Thromboplastin Time 28.5 sec (23.6-33.0)
[2021-09-02] MEDS ORDERED: HEPARIN SODIUM (PORCINE) 5000 UNITS/ML 1ML VIAL ONE (02:04)
[2021-09-02] MEDS: PIPERACILLIN-TAZOB 3.375GM 100 ML IV SCH ×3 (02:16→14:31)
[2021-09-02] MEDS: PROPOFOL 100 ML IV SCH ×2 (02:37→23:02)
[2021-09-02 03:35] LABS: Alcohol, Urine < 3.0 mg/dL (0-10); Amphetamine Screen, Urine NEGATIVE (NEGATIVE); Barbiturate Scree,Urine NEGATIVE (NEGATIVE); Benzodiazephine Screen, Urine POSITIVE (NEGATIVE); Cannabinoid Screen, Urine NEGATIVE (NEGATIVE); Cocaine Screen, Urine NEGATIVE (NEGATIVE); Opiate Scree,Urine NEGATIVE (NEGATIVE); Phencyclidine Screen, Urine NEGATIVE (NEGATIVE); Protein, Urine 81.1 mg/dL (0.0-11.9)
[2021-09-02 04:11] LABS: Urine Bacteria NONE SEEN /hpf (None Seen); Urine Blood 2+ /uL (Negative); Urine Mucus FEW (None Seen); Urine Specific Gravity 1.016 (1.001-1.035); Urine WBC 255 /hpf (0 - 5); Urine WBC Clumps PRESENT /hpf (None Seen)
[2021-09-02 04:25] LABS: Basophils # (auto) 0.1 10 ^3/uL (0-0.2); Basophils % (auto) 0.5 % (0.0-2.0); Eosinophils # (auto) 0 10 ^3/uL (0-0.8); Eosinophils % (auto) 0.2 % (0.0-7.0); Hematocrit 31.1 % (36.0-46.0); Hemoglobin 10.4 g/dL (12.2-16.2); Lymphocytes # (auto) 0.3 10 ^3/uL (0.4-5.4); Lymphocytes % (auto) 2.7 % (10.0-50.0); Mean Corpuscular Hemoglobin 31.3 pg (28.0-32.0); Mean Corpuscular Hgb Conc. 33.5 g/dL (32.0-36.0); Mean Corpuscular Volume 93.6 fL (80.0-100.0); Monocytes # (auto) 0.4 10 ^3/uL (0-1.3); Monocytes % (auto) 3.5 % (0.0-12.0); Neutrophils # (auto) 9.8 10 ^3/uL (1.6-8.6); Neutrophils % (auto) 93.1 % (37.0-80.0); Red Blood Cells 3.32 10^6/uL (4.0-5.20); Red Cell Distribution Width 16.4 % (11.8-14.3); White Blood Cell 10.5 10^3/uL (4.4-10.8)
[2021-09-02 04:40] LABS: INR 1.07 (0.9-1.15); Partial Thromboplastin Time 50.5 sec (23.6-33.0)
[2021-09-02] MEDS: VANCOMYCIN 1GM/250ML 250 ML IV SCH ×2 (05:13→16:02)
[2021-09-02 05:17] LABS: Albumin 2.1 g/dL (3.4-5.0); Calcium 8.2 mg/dL (8.5-10.1); Magnesium 1.7 mg/dL (1.6-2.6); Potassium 4.5 mmol/L (3.5-5.1); Uric Acid 7.7 mg/dL (2.6-6.0)
[2021-09-02 05:26] LABS: BUN/Creatinine Ratio 11.8; Bilirubin, Total 0.4 mg/dL (0.2-1.0); CRP High Sensitivity 12.1 mg/dL (< 0.3); Phosphorus 2.4 mg/dL (2.5-4.90); Total Protein 6.9 g/dL (6.4-8.2)
[2021-09-02] MEDS: ACCU-CHEK COMFORT CURVE STRIP VI SCH ×4 (05:53→22:02)
[2021-09-02] MEDS: InsuLIN REG 1unit/0.01ml Soln (100units/ml) SC SCH ×4 (05:54→22:00)
[2021-09-02] MEDS: methylPREDNISolone SOD SUCC 40 MG/ML VL IV SCH (05:55)
[2021-09-02] MEDS ORDERED: BUMETANIDE 2.5mg/10ml (0.25 mg/ml) INJ IV SCH (06:00)
[2021-09-02] MEDS ORDERED: LEVOTHYROXINE SODIUM 50 MCG TAB PO SCH (07:00)
[2021-09-02 07:33] LABS: INR 1.04 (0.9-1.15); Partial Thromboplastin Time 38.8 sec (23.6-33.0)
[2021-09-02] MEDS: AMIODARONE 450mg/250ml AE 250 ML IV SCH ×2 (08:00→14:15)
[2021-09-02] MEDS: BUDESONIDE (INHALATION) 0.5 MG/2 ML NEB NEB SCH ×2 (09:43→22:06)
[2021-09-02] MEDS ORDERED: CHOLECALCIFEROL (VITD3) 2,000 UNIT CAP/TAB PO SCH (10:00)
[2021-09-02] MEDS ORDERED: THIAMINE HCL 100 MG TAB PO SCH (10:00)
[2021-09-02] MEDS ORDERED: FOLIC ACID 1 MG TAB PO SCH (10:00)
[2021-09-02] MEDS ORDERED: PANTOPRAZOLE 40 MG/10 ML VIAL INJ IV SCH (10:00)
[2021-09-02] MEDS ORDERED: risperiDONE 1 MG TAB PO SCH (10:00)
[2021-09-02] MEDS ORDERED: ASPirin 81 mg TAB PO SCH (10:00)
[2021-09-02] MEDS ORDERED: CYANOCOBALAMIN 500 MCG TAB PO SCH (10:00)
[2021-09-02] MEDS ORDERED: MULTIPLE VITAMINS W/ MINERALS TAB PO SCH (10:00)
[2021-09-02] MEDS ORDERED: METOPROLOL SUCCINATE XL 50 MG TAB PO SCH (10:00)
[2021-09-02] MEDS: NYSTATIN TOPICAL POWDER 15GM TOP SCH ×2 (10:29→22:02)
[2021-09-02 11:52] LABS: Free T3 1.86 pg/mL (2.3-4.2); Free T4 (Free Thyroxine) 0.97 ng/dL (0.89-1.76)
[2021-09-02 13:57] LABS: INR 1.02 (0.9-1.15); Partial Thromboplastin Time 35.6 sec (23.6-33.0)
[2021-09-02] MEDS: HEPARIN DRIP/D5W 100UNITS/ML 250 ML IV SCH (14:28)
[2021-09-02] MEDS: MIDAZOLAM DRIP 50 mg/50mL 50 ML IV SCH (20:00)
[2021-09-02 21:48] LABS: INR 1.02 (0.9-1.15); Partial Thromboplastin Time 39.3 sec (23.6-33.0)
[2021-09-02] MEDS ORDERED: CEFEPIME 1 GM in SODIUM CHL 0.9% 50 ML IV SCH (22:00)
[2021-09-02] MEDS: ATORVASTATIN 20 MG TAB PO SCH (22:02)
[2021-09-03] VITALS (14 sets, daily range): BP systolic 96–155; BP diastolic 43–77
[2021-09-03] MEDS: MIDAZOLAM DRIP 50 mg/50mL 50 ML IV SCH (02:00)
[2021-09-03] MEDS: HEPARIN DRIP/D5W 100UNITS/ML 250 ML IV SCH (03:00)
[2021-09-03] MEDS: PROPOFOL 100 ML IV SCH (04:03)
== END 2021-09-03 04:44 | disposition short-term general hospital (02) | DRG 871 ==
LOC: ER 11:17 → EDBD 11:17 → TELE 13:41 → ICU WEST 15:58
PROVIDERS: ADMIT Hospitalist; ATTEND Internal Medicine
PROC: 5A1945Z Respiratory Ventilation, 24-96 Consecutive Hours (ICD-10-PCS; principal; 2021-09-01)
PROC: 0BH17EZ Insertion of Endotracheal Airway into Trachea, Via Natural or Artificial Opening (ICD-10-PCS; 2021-09-01)
DX: A41.9 Sepsis, unspecified organism (principal); N17.0 Acute kidney failure with tubular necrosis; I50.43 Acute on chronic combined systolic (congestive) and diastolic (congestive) heart failure; J18.9 Pneumonia, unspecified organism; R65.21 Severe sepsis with septic shock; I46.9 Cardiac arrest, cause unspecified; I21.4 Non-ST elevation (NSTEMI) myocardial infarction; J96.01 Acute respiratory failure with hypoxia; I16.1 Hypertensive emergency; J44.1 Chronic obstructive pulmonary disease with (acute) exacerbation; L03.311 Cellulitis of abdominal wall; I13.0 Hypertensive heart and chronic kidney disease with heart failure and stage 1 through stage 4 chronic kidney disease, or unspecified chronic kidney disease; J44.0 Chronic obstructive pulmonary disease with (acute) lower respiratory infection; K51.90 Ulcerative colitis, unspecified, without complications; N39.0 Urinary tract infection, site not specified; Z68.43 Body mass index [BMI] 50.0-59.9, adult; E87.5 Hyperkalemia; N18.32 Chronic kidney disease, stage 3b; E88.09 Other disorders of plasma-protein metabolism, not elsewhere classified; G40.901 Epilepsy, unspecified, not intractable, with status epilepticus; I50.82 Biventricular heart failure; I48.0 Paroxysmal atrial fibrillation; I27.9 Pulmonary heart disease, unspecified; I25.10 Atherosclerotic heart disease of native coronary artery without angina pectoris; F20.9 Schizophrenia, unspecified; F41.9 Anxiety disorder, unspecified; E03.9 Hypothyroidism, unspecified; E11.22 Type 2 diabetes mellitus with diabetic chronic kidney disease; M19.90 Unspecified osteoarthritis, unspecified site; K43.2 Incisional hernia without obstruction or gangrene; Z20.822 Contact with and (suspected) exposure to COVID-19; E66.01 Morbid (severe) obesity due to excess calories; E78.5 Hyperlipidemia, unspecified; F31.9 Bipolar disorder, unspecified; Z93.3 Colostomy status; Z81.8 Family history of other mental and behavioral disorders; Z87.442 Personal history of urinary calculi; Z90.710 Acquired absence of both cervix and uterus; Z91.81 History of falling; Z88.8 Allergy status to other drugs, medicaments and biological substances; Z90.49 Acquired absence of other specified parts of digestive tract
CPT/HCPCS: 31500; 36415; 36556; 36600; 70450; 71045; 80053; 80061; 80307; 81001; 82550; 82728; 82805; 82962; 83036; 83605; 83615; 83690; 83735; 83880; 84100; 84132; 84156; 84439; 84443; 84481; 84484; 84550; 85007; 85025; 85027; 85379; 85610; 85652; 85730; 86141; 87040; 87070; 87077; 87081; 87086; 87088; 87186; 87205; 93005; 93306; 93925; 93970; 94002; 94003; 94640; 96365; 96375; 99291; C9113; G0378; J0696; J1815; J2250; J2543; J2704; J7060

== ENCOUNTER 2022-02-07 18:00 | Emergency (ER) | payer OTHER ==
[~2022-02-07] VITALS: Ht 162.6 cm; Wt 280.0 kg
[2022-02-07 20:04] LABS: Basophils # (auto) 0.1 10 ^3/uL (0-0.2); Basophils % (auto) 0.9 % (0.0-2.0); Eosinophils # (auto) 0.2 10 ^3/uL (0-0.8); Hematocrit 39.1 % (36.0-46.0); Hemoglobin 12.2 g/dL (12.2-16.2); Lymphocytes # (auto) 1.6 10 ^3/uL (0.4-5.4); Mean Corpuscular Hemoglobin 27.4 pg (28.0-32.0); Mean Corpuscular Hgb Conc. 31.1 g/dL (32.0-36.0); Mean Corpuscular Volume 88.2 fL (80.0-100.0); Monocytes # (auto) 0.9 10 ^3/uL (0-1.3); Monocytes % (auto) 8.3 % (0.0-12.0); Neutrophils # (auto) 8.4 10 ^3/uL (1.6-8.6); Neutrophils % (auto) 74.8 % (37.0-80.0); Nucleated Red Blood Cells % 0.1 %; Red Blood Cells 4.44 10^6/uL (4.0-5.20); Red Cell Distribution Width 16.3 % (11.8-14.3); White Blood Cell 11.2 10^3/uL (4.4-10.8)
[2022-02-07 20:18] LABS: Albumin 2.8 g/dL (3.4-5.0); BUN/Creatinine Ratio 17.4; Calcium 8.7 mg/dL (8.5-10.1)
[2022-02-07 20:20] LABS: Bilirubin, Total 0.2 mg/dL (0.2-1.0); Total Protein 7.5 g/dL (6.4-8.2)
[2022-02-07] MEDS ORDERED: VANCOMYCIN 1GM/250ML 250 ML IV ONE (20:30)
[2022-02-07] MEDS ORDERED: MORPHINE SULFATE INJ 2 MG/ml SYRG IM ONE (20:45)
[2022-02-07] MEDS ORDERED: SODIUM CHLORIDE 0.9% 1,000 ML IV ONE (22:00)
[2022-02-08] MEDS ORDERED: MORPHINE SULFATE INJ 2 MG/ml SYRG IV ONE (00:15)
[2022-02-08] MEDS ORDERED: OXYCODONE W/ ACETAMINOPHEN 5/325MG TABLET PO ONE ×2 (00:30→04:45)
[2022-02-08 01:25] LABS: Urine Bacteria FEW /hpf (None Seen); Urine Blood Negative /uL (Negative); Urine Hyaline Cast FEW /lpf (0 - 2); Urine Mucus FEW (None Seen); Urine Specific Gravity 1.038 (1.001-1.035); Urine WBC 3 /hpf (0 - 5)
[2022-02-08 06:39] VITALS: BP 143/77
[2022-02-09] MEDS ORDERED: LIDOCAINE 1%HCL (LOCAL ANESTH) 10 ML MDV ONE (07:17)
== END 2022-02-08 06:39 | disposition short-term general hospital (02) ==
LOC: EDBD 18:00 → ER 18:10
DX: L03.311 Cellulitis of abdominal wall (principal); F11.23 Opioid dependence with withdrawal; J44.9 Chronic obstructive pulmonary disease, unspecified; I10 Essential (primary) hypertension; E78.5 Hyperlipidemia, unspecified; M19.90 Unspecified osteoarthritis, unspecified site; Z90.49 Acquired absence of other specified parts of digestive tract; Z90.710 Acquired absence of both cervix and uterus; Z88.1 Allergy status to other antibiotic agents
CPT/HCPCS: 36415; 74176; 80053; 81001; 83690; 85025; 93005; 96365; 99285; J3370

== ENCOUNTER 2022-03-09 15:28 | Inpatient (IN) | payer OTHER ==
[~2022-03-09] VITALS: Ht 162.6 cm; Wt 154.6 kg
[2022-03-09] MEDS ORDERED: cefTRIAXone 1GM/50ML D5W 50 ML IV ONE (18:30)
[2022-03-09] MEDS ORDERED: SODIUM CHLORIDE 0.9% 1,000 ML IV ONE ×2 (18:30)
[2022-03-09 21:58] LABS: Basophils # (auto) 0 10 ^3/uL (0-0.2); Basophils % (auto) 0.5 % (0.0-2.0); Eosinophils # (auto) 0.2 10 ^3/uL (0-0.8); Eosinophils % (auto) 1.9 % (0.0-7.0); Hematocrit 35.1 % (36.0-46.0); Hemoglobin 11.1 g/dL (12.2-16.2); Lymphocytes # (auto) 1.7 10 ^3/uL (0.4-5.4); Mean Corpuscular Hemoglobin 27.7 pg (28.0-32.0); Mean Corpuscular Hgb Conc. 31.6 g/dL (32.0-36.0); Mean Corpuscular Volume 87.5 fL (80.0-100.0); Monocytes % (auto) 9.8 % (0.0-12.0); Neutrophils # (auto) 7.1 10 ^3/uL (1.6-8.6); Neutrophils % (auto) 70.8 % (37.0-80.0); Red Blood Cells 4.01 10^6/uL (4.0-5.20); Red Cell Distribution Width 15.8 % (11.8-14.3); White Blood Cell 10.1 10^3/uL (4.4-10.8)
[2022-03-09 22:06] LABS: Albumin 2.3 g/dL (3.4-5.0); Calcium 7.9 mg/dL (8.5-10.1); Potassium 4.6 mmol/L (3.5-5.1)
[2022-03-09 22:08] LABS: INR 0.94 (0.9-1.15); Partial Thromboplastin Time 25.7 sec (24.6-33.4)
[2022-03-09 22:10] LABS: BUN/Creatinine Ratio 13.2; Bilirubin, Total 0.3 mg/dL (0.2-1.0)
[2022-03-09] MEDS ORDERED: MORPHINE SULFATE INJ 2 MG/ml SYRG IV PRN (22:15)
[2022-03-09] MEDS ORDERED: NITROGLYCERIN 0.4 MG SL TAB SL PRN (22:15)
[2022-03-09] MEDS ORDERED: DOCUSATE SOD 100 MG CAP PO PRN (22:15)
[2022-03-09 23:14] LABS: Urine Bacteria MANY /hpf (None Seen); Urine Blood 2+ /uL (Negative); Urine Mucus FEW (None Seen); Urine Specific Gravity 1.019 (1.001-1.035); Urine WBC 229 /hpf (0 - 5); Urine WBC Clumps PRESENT /hpf (None Seen)
[2022-03-10] MEDS: HYDROcodone-ACET 5/325MG TAB PO PRN ×2 (02:36→08:22)
[2022-03-10] MEDS: SODIUM CHLOR 0.9% PF (SALINE LOCK) 10ML VIAL/SYR IV SCH ×3 (06:24→22:00)
[2022-03-10 06:43] LABS: Basophils # (auto) 0.1 10 ^3/uL (0-0.2); Basophils % (auto) 1.2 % (0.0-2.0); Eosinophils # (auto) 0.2 10 ^3/uL (0-0.8); Eosinophils % (auto) 3.1 % (0.0-7.0); Hemoglobin 9.9 g/dL (12.2-16.2); Lymphocytes # (auto) 1.5 10 ^3/uL (0.4-5.4); Lymphocytes % (auto) 23.1 % (10.0-50.0); Mean Corpuscular Hemoglobin 27.2 pg (28.0-32.0); Mean Corpuscular Hgb Conc. 31.1 g/dL (32.0-36.0); Mean Corpuscular Volume 87.4 fL (80.0-100.0); Monocytes # (auto) 0.6 10 ^3/uL (0-1.3); Monocytes % (auto) 9.5 % (0.0-12.0); Neutrophils # (auto) 4.1 10 ^3/uL (1.6-8.6); Neutrophils % (auto) 63.1 % (37.0-80.0); Red Blood Cells 3.65 10^6/uL (4.0-5.20); Red Cell Distribution Width 15.8 % (11.8-14.3); White Blood Cell 6.5 10^3/uL (4.4-10.8)
[2022-03-10 07:00] LABS: Calcium 7.6 mg/dL (8.5-10.1); Potassium 4.4 mmol/L (3.5-5.1)
[2022-03-10 07:04] LABS: BUN/Creatinine Ratio 12.5; Bilirubin, Total 0.5 mg/dL (0.2-1.0); Total Protein 5.3 g/dL (6.4-8.2)
[2022-03-10] MEDS ORDERED: FAMOTIDINE (10MG/ML) 2ML VL IV SCH (10:00)
[2022-03-10] MEDS: HYDROGEL 60 GRAM GEL TOP SCH ×2 (10:00→22:00)
[2022-03-10] MEDS: ZINC SULFATE 220mg CAP or TAB PO SCH (10:49)
[2022-03-10] MEDS: ASCORBIC ACID 500 MG TAB PO SCH ×2 (10:49→23:59)
[2022-03-10] MEDS: cefTRIAXone 1GM/50ML D5W 50 ML IV SCH (10:49)
[2022-03-10] MEDS: MULTIPLE VITAMIN TAB PO SCH (10:49)
[2022-03-10] MEDS: HEPARIN SODIUM (PORCINE) 5000 UNITS/ML 1ML VIAL SC SCH ×2 (10:52→23:59)
[2022-03-10] MEDS: FAMOTIDINE (10MG/ML) 2ML VL IV SCH ×2 (10:53→23:55)
[2022-03-10] MEDS ORDERED: TAMS0.4C36 PO (14:26)
[2022-03-10] MEDS ORDERED: SUL500T PO (14:26)
[2022-03-10] MEDS ORDERED: PANT40T PO (14:26)
[2022-03-10] MEDS ORDERED: BUSP5TAB51 PO (14:26)
[2022-03-10] MEDS ORDERED: RISP2TAB62 PO (14:26)
[2022-03-10] MEDS ORDERED: DABI1CAP PO (14:26)
[2022-03-10] MEDS ORDERED: BISO5TAB44 PO (14:26)
[2022-03-10] MEDS ORDERED: SIMV10TA84 PO (14:26)
[2022-03-10] MEDS ORDERED: TRAZ1TAB12 PO (14:26)
[2022-03-10] MEDS ORDERED: LEVO150T10 PO (14:26)
[2022-03-10] MEDS: OXYCODONE W/ ACETAMINOPHEN 5/325MG TABLET PO PRN ×2 (14:35→21:18)
[2022-03-10 22:00] VITALS: BP 137/51
[2022-03-10] MEDS: ALBUMIN 25% 100 ML IV SCH (23:47)
[2022-03-10] MEDS: NYSTATIN TOPICAL POWDER 15GM TOP SCH (23:59)
[2022-03-11] MEDS: ACETAMINOPHEN 325 MG TAB PO PRN ×2 (01:34→23:18)
[2022-03-11] MEDS: ALBUMIN 25% 100 ML IV SCH (01:34)
[2022-03-11 05:00] VITALS: BP 176/52
[2022-03-11] MEDS: SODIUM CHLOR 0.9% PF (SALINE LOCK) 10ML VIAL/SYR IV SCH ×3 (05:37→21:05)
[2022-03-11] MEDS: OXYCODONE W/ ACETAMINOPHEN 5/325MG TABLET PO PRN ×4 (07:04→21:05)
[2022-03-11 09:00] VITALS: BP 160/75
[2022-03-11] MEDS: FAMOTIDINE (10MG/ML) 2ML VL IV SCH ×2 (11:58→21:04)
[2022-03-11] MEDS: ZINC SULFATE 220mg CAP or TAB PO SCH (11:58)
[2022-03-11] MEDS: MULTIPLE VITAMIN TAB PO SCH (11:59)
[2022-03-11] MEDS: HEPARIN SODIUM (PORCINE) 5000 UNITS/ML 1ML VIAL SC SCH ×2 (11:59→21:05)
[2022-03-11] MEDS: NYSTATIN TOPICAL POWDER 15GM TOP SCH ×2 (11:59→21:23)
[2022-03-11] MEDS: ASCORBIC ACID 500 MG TAB PO SCH ×2 (11:59→21:05)
[2022-03-11] MEDS: cefTRIAXone 1GM/50ML D5W 50 ML IV SCH (15:33)
[2022-03-11] MEDS: metroNIDAZOLE 500MG/100ML 100 ML IV SCH ×2 (15:33→21:04)
[2022-03-11] MEDS: ONDANSETRON HCL 4 MG/2 ML VIAL IV PRN (18:02)
[2022-03-11 22:00] VITALS: BP 176/53
[2022-03-12] MEDS: OXYCODONE W/ ACETAMINOPHEN 5/325MG TABLET PO PRN ×5 (01:50→21:34)
[2022-03-12 05:00] VITALS: BP 113/38
[2022-03-12] MEDS: metroNIDAZOLE 500MG/100ML 100 ML IV SCH ×3 (06:22→21:33)
[2022-03-12] MEDS: SODIUM CHLOR 0.9% PF (SALINE LOCK) 10ML VIAL/SYR IV SCH ×3 (06:22→21:36)
[2022-03-12 08:47] VITALS: BP 109/68
[2022-03-12] MEDS: ZINC SULFATE 220mg CAP or TAB PO SCH (09:38)
[2022-03-12] MEDS: ASCORBIC ACID 500 MG TAB PO SCH ×2 (09:38→21:34)
[2022-03-12] MEDS: cefTRIAXone 1GM/50ML D5W 50 ML IV SCH (09:38)
[2022-03-12] MEDS: MULTIPLE VITAMIN TAB PO SCH (09:38)
[2022-03-12] MEDS: FAMOTIDINE (10MG/ML) 2ML VL IV SCH ×2 (09:38→21:36)
[2022-03-12] MEDS: NYSTATIN TOPICAL POWDER 15GM TOP SCH ×2 (09:38→22:16)
[2022-03-12] MEDS: HEPARIN SODIUM (PORCINE) 5000 UNITS/ML 1ML VIAL SC SCH ×2 (09:56→21:39)
[2022-03-12] MEDS ORDERED: cloNIDine HCL 0.1 MG TAB PO PRN (12:00)
[2022-03-12] MEDS ORDERED: ATENOLOL 50 MG TAB PO ONE (12:15)
[2022-03-12] MEDS: ONDANSETRON HCL 4 MG/2 ML VIAL IV PRN ×2 (12:18→22:12)
[2022-03-12 12:56] VITALS: BP 167/96
[2022-03-12] MEDS: busPIRone HCL 10 MG TAB PO SCH ×2 (15:34→21:35)
[2022-03-12 17:06] VITALS: BP 137/79
[2022-03-12] MEDS: DABIGATRAN ETEXILATE MESYLATE PO SCH (21:36)
[2022-03-12 21:49] VITALS: BP 118/67
[2022-03-12] MEDS ORDERED: traZODone HCL 50 MG TAB PO SCH (22:00)
[2022-03-12] MEDS ORDERED: ATORVASTATIN 20 MG TAB PO SCH (22:00)
[2022-03-13] MEDS: OXYCODONE W/ ACETAMINOPHEN 5/325MG TABLET PO PRN ×2 (04:12→11:13)
[2022-03-13 05:00] VITALS: BP 128/50
[2022-03-13] MEDS: SODIUM CHLOR 0.9% PF (SALINE LOCK) 10ML VIAL/SYR IV SCH ×2 (06:00→14:02)
[2022-03-13] MEDS ORDERED: LEVOTHYROXINE SODIUM 50 MCG TAB PO SCH (07:00)
[2022-03-13] MEDS: busPIRone HCL 10 MG TAB PO SCH ×2 (07:25→14:17)
[2022-03-13] MEDS: metroNIDAZOLE 500MG/100ML 100 ML IV SCH ×2 (07:25→14:17)
[2022-03-13] MEDS: FAMOTIDINE (10MG/ML) 2ML VL IV SCH (08:21)
[2022-03-13] MEDS: cefTRIAXone 1GM/50ML D5W 50 ML IV SCH (08:21)
[2022-03-13] MEDS: ZINC SULFATE 220mg CAP or TAB PO SCH (08:23)
[2022-03-13] MEDS: ASCORBIC ACID 500 MG TAB PO SCH (08:23)
[2022-03-13] MEDS: MULTIPLE VITAMIN TAB PO SCH (08:23)
[2022-03-13] MEDS: NYSTATIN TOPICAL POWDER 15GM TOP SCH (08:27)
[2022-03-13] MEDS: DABIGATRAN ETEXILATE MESYLATE PO SCH (08:28)
[2022-03-13] MEDS: HEPARIN SODIUM (PORCINE) 5000 UNITS/ML 1ML VIAL SC SCH (08:32)
[2022-03-13 08:38] VITALS: BP 167/81
[2022-03-13] MEDS ORDERED: sulfaSALAzine 500 MG TAB PO SCH (10:00)
[2022-03-13] MEDS ORDERED: TAMSULOSIN HYDROCHLORIDE 0.4 MG CAP PO SCH (10:00)
[2022-03-13] MEDS ORDERED: ATENOLOL 50 MG TAB PO SCH (10:00)
[2022-03-13] MEDS ORDERED: risperiDONE 1 MG TAB PO SCH (10:00)
[2022-03-13] MEDS ORDERED: LEVO750T8 PO (10:50)
[2022-03-13] MEDS ORDERED: NYSTOIN TOP (10:51)
[2022-03-13 11:27] VITALS: BP 136/82
[2022-03-13 13:12] VITALS: BP 94/53
== END 2022-03-13 15:18 | disposition home or self-care (01) | DRG 872 ==
LOC: EDBD 15:28 → ER 15:30 → OVERFLOW 22:01 → EAST 03-10 13:52
PROVIDERS: ADMIT Nurse Practitioner Family; ATTEND Family Medicine
DX: A41.9 Sepsis, unspecified organism (principal); J98.11 Atelectasis; L03.311 Cellulitis of abdominal wall; N39.0 Urinary tract infection, site not specified; E46 Unspecified protein-calorie malnutrition; Z68.43 Body mass index [BMI] 50.0-59.9, adult; F03.93 Unspecified dementia, unspecified severity, with mood disturbance; Z20.822 Contact with and (suspected) exposure to COVID-19; E66.01 Morbid (severe) obesity due to excess calories; J44.9 Chronic obstructive pulmonary disease, unspecified; E03.9 Hypothyroidism, unspecified; M19.90 Unspecified osteoarthritis, unspecified site; K44.9 Diaphragmatic hernia without obstruction or gangrene; I11.0 Hypertensive heart disease with heart failure; I50.9 Heart failure, unspecified; E78.5 Hyperlipidemia, unspecified; Z87.442 Personal history of urinary calculi; Z90.49 Acquired absence of other specified parts of digestive tract; Z90.710 Acquired absence of both cervix and uterus; Z74.01 Bed confinement status; Z81.8 Family history of other mental and behavioral disorders
CPT/HCPCS: 36415; 71045; 74176; 80053; 81001; 83605; 83880; 84484; 85025; 85610; 85730; 87040; 87077; 87086; 87088; 87186; 87205; 96361; 96365; 96366; G0378; J0696; J2405; J3490; P9047

== ENCOUNTER 2022-06-10 16:26 | Emergency (ER) | payer OTHER ==
[~2022-06-10] VITALS: Ht 162.6 cm; Wt 136.3 kg
[~2022-06-10 16:26] MED LIST changes: +BISO5TAB44 PO; +BUSP5TAB51 PO; +DABI1CAP PO; +LEVO150T10 PO; +LEVO750T8 PO; +NYSTOIN TOP; +PANT40T PO; +RISP2TAB62 PO; +SIMV10TA84 PO; +SUL500T PO; +TAMS0.4C36 PO; +TRAZ1TAB12 PO
[2022-06-10 22:09] LABS: Basophils # (auto) 0.1 10 ^3/uL (0-0.2); Basophils % (auto) 0.7 % (0.0-2.0); Eosinophils # (auto) 0.1 10 ^3/uL (0-0.8); Eosinophils % (auto) 0.5 % (0.0-7.0); Hematocrit 39.5 % (36.0-46.0); Hemoglobin 12.4 g/dL (12.2-16.2); Lymphocytes # (auto) 1.5 10 ^3/uL (0.4-5.4); Lymphocytes % (auto) 12.2 % (10.0-50.0); Mean Corpuscular Hemoglobin 28.5 pg (28.0-32.0); Mean Corpuscular Hgb Conc. 31.4 g/dL (32.0-36.0); Mean Corpuscular Volume 90.8 fL (80.0-100.0); Monocytes # (auto) 0.7 10 ^3/uL (0-1.3); Monocytes % (auto) 5.6 % (0.0-12.0); Nucleated Red Blood Cells % 0.1 %; Red Blood Cells 4.35 10^6/uL (4.0-5.20); Red Cell Distribution Width 17.3 % (11.8-14.3); White Blood Cell 12.4 10^3/uL (4.4-10.8)
[2022-06-10 22:23] LABS: Albumin 2.7 g/dL (3.4-5.0); BUN/Creatinine Ratio 13.5; Calcium 8.9 mg/dL (8.5-10.1); Potassium 4.3 mmol/L (3.5-5.1)
[2022-06-10 22:26] LABS: Bilirubin, Total 0.2 mg/dL (0.2-1.0); Total Protein 8.1 g/dL (6.4-8.2)
[2022-06-10 22:27] LABS: Lactic Acid w/Reflex 2.5 mmol/L (0.4-2.0)
[2022-06-10] MEDS ORDERED: SODIUM CHLORIDE 0.9% 1,000 ML IV ONE (23:45)
[2022-06-10] MEDS ORDERED: cefTRIAXone 1GM/50ML D5W 50 ML IV ONE (23:45)
[2022-06-11 01:01] LABS: Urine Bacteria MANY /hpf (None Seen); Urine Blood 2+ /uL (Negative); Urine Mucus FEW (None Seen); Urine Specific Gravity 1.022 (1.001-1.035); Urine WBC 1273 /hpf (0 - 5); Urine WBC Clumps PRESENT /hpf (None Seen)
[2022-06-11] MEDS ORDERED: MORPHINE SULFATE INJ 2 MG/ml SYRG IV ONE (02:15)
[2022-06-11] MEDS ORDERED: ONDANSETRON HCL 4 MG/2 ML VIAL IV ONE (02:15)
[2022-06-11 07:52] VITALS: BP 133/67
== END 2022-06-11 09:55 | disposition short-term general hospital (02) ==
LOC: EDBD 16:26 → ER 16:26
DX: A41.9 Sepsis, unspecified organism (principal); N39.0 Urinary tract infection, site not specified; T83.511A Infection and inflammatory reaction due to indwelling urethral catheter, initial encounter; J44.9 Chronic obstructive pulmonary disease, unspecified; I10 Essential (primary) hypertension; E78.5 Hyperlipidemia, unspecified; Z88.8 Allergy status to other drugs, medicaments and biological substances; Z90.49 Acquired absence of other specified parts of digestive tract; Z90.710 Acquired absence of both cervix and uterus; Z87.442 Personal history of urinary calculi; Z20.822 Contact with and (suspected) exposure to COVID-19
CPT/HCPCS: 36415; 51702; 71045; 80053; 81001; 83605; 85025; 87077; 87086; 87186; 87205; 87426; 96361; 96365; 96375; 99285; J0696; J2270; J2405; J7030

== ENCOUNTER 2022-07-25 15:58 | Emergency (ER) | payer OTHER ==
[~2022-07-25] VITALS: Ht 162.6 cm; Wt 129.5 kg
[2022-07-25 17:01] LABS: Basophils # (auto) 0.1 10 ^3/uL (0-0.2); Basophils % (auto) 0.8 % (0.0-2.0); Eosinophils # (auto) 0.3 10 ^3/uL (0-0.8); Eosinophils % (auto) 2.7 % (0.0-7.0); Hematocrit 37.3 % (36.0-46.0); Hemoglobin 11.8 g/dL (12.2-16.2); Lymphocytes # (auto) 1.7 10 ^3/uL (0.4-5.4); Lymphocytes % (auto) 13.9 % (10.0-50.0); Mean Corpuscular Hemoglobin 27.9 pg (28.0-32.0); Mean Corpuscular Hgb Conc. 31.6 g/dL (32.0-36.0); Mean Corpuscular Volume 88.2 fL (80.0-100.0); Monocytes # (auto) 0.8 10 ^3/uL (0-1.3); Monocytes % (auto) 6.5 % (0.0-12.0); Neutrophils # (auto) 9.5 10 ^3/uL (1.6-8.6); Neutrophils % (auto) 76.1 % (37.0-80.0); Nucleated Red Blood Cells % 0.1 %; Red Blood Cells 4.23 10^6/uL (4.0-5.20); White Blood Cell 12.5 10^3/uL (4.4-10.8)
[2022-07-25 17:15] LABS: INR 1.04 (0.9-1.15); Partial Thromboplastin Time 32.3 sec (24.6-33.4)
[2022-07-25 17:23] LABS: Alanine Aminotransferase 13 U/L (13-56); Albumin 2.5 g/dL (3.4-5.0); Anion Gap 6 (5-15); Aspartate Aminotransferase 4 U/L (15-37); BUN/Creatinine Ratio 17.4; Blood Urea Nitrogen 15 mg/dL (7-18); Calcium 8.2 mg/dL (8.5-10.1); Carbon Dioxide 23 mmol/L (21-32); Chloride 108 mmol/L (98-107); GFR African American 83 mL/min; GFR Non-African American 68 mL/min; Glucose 143 mg/dL (74-106); Potassium 4.4 mmol/L (3.5-5.1); Sodium 137 mmol/L (136-145)
[2022-07-25 17:26] LABS: Alkaline Phosphatase 75 U/L (45-117); Bilirubin, Total 0.2 mg/dL (0.2-1.0); Total Protein 7.9 g/dL (6.4-8.2)
[2022-07-25] MEDS ORDERED: OXYCODONE W/ ACETAMINOPHEN 5/325MG TABLET PO ONE (18:00)
[2022-07-25 21:00] VITALS: BP 163/74
== END 2022-07-26 01:15 | disposition home or self-care (01) ==
LOC: ER 15:58 → EDBD 15:58 → ER 07-26 01:15
DX: R06.00 Dyspnea, unspecified (principal); J44.9 Chronic obstructive pulmonary disease, unspecified; E78.5 Hyperlipidemia, unspecified; I10 Essential (primary) hypertension; Z90.49 Acquired absence of other specified parts of digestive tract; Z90.710 Acquired absence of both cervix and uterus; Z87.442 Personal history of urinary calculi; Z88.6 Allergy status to analgesic agent; Z88.8 Allergy status to other drugs, medicaments and biological substances
CPT/HCPCS: 36415; 71045; 80053; 83880; 84484; 85025; 85610; 85730; 93005

== ENCOUNTER 2022-08-24 20:04 | Emergency (ER) | payer OTHER ==
[~2022-08-24] VITALS: Ht 162.6 cm; Wt 136.4 kg
[2022-08-24] MEDS ORDERED: HYDROcodone-ACET 5/325MG TAB PO ONE (20:45)
[2022-08-24 21:42] LABS: Basophils # (auto) 0.1 10 ^3/uL (0-0.2); Basophils % (auto) 0.9 % (0.0-2.0); Eosinophils # (auto) 0.3 10 ^3/uL (0-0.8); Monocytes # (auto) 0.9 10 ^3/uL (0-1.3); Monocytes % (auto) 9.1 % (0.0-12.0)
[2022-08-24 21:43] LABS: Eosinophils % (auto) 2.6 % (0.0-7.0); Hematocrit 41.3 % (36.0-46.0); Hemoglobin 12.8 g/dL (12.2-16.2); Lymphocytes # (auto) 1.9 10 ^3/uL (0.4-5.4); Lymphocytes % (auto) 17.8 % (10.0-50.0); Mean Corpuscular Hemoglobin 27.1 pg (28.0-32.0); Mean Corpuscular Hgb Conc. 30.9 g/dL (32.0-36.0); Mean Corpuscular Volume 87.9 fL (80.0-100.0); Neutrophils # (auto) 7.2 10 ^3/uL (1.6-8.6); Neutrophils % (auto) 69.6 % (37.0-80.0); Nucleated Red Blood Cells % 0.1 %; Red Cell Distribution Width 17.7 % (11.8-14.3); White Blood Cell 10.4 10^3/uL (4.4-10.8)
[2022-08-24 21:59] LABS: Albumin 2.7 g/dL (3.4-5.0); BUN/Creatinine Ratio 18.4 (10.0-20.0); Calcium 9.6 mg/dL (8.5-10.1); Potassium 3.9 mmol/L (3.5-5.1)
[2022-08-24 22:02] LABS: Bilirubin, Total 0.2 mg/dL (0.2-1.0); Total Protein 7.9 g/dL (6.4-8.2)
[2022-08-24] MEDS ORDERED: HYDROmorphone HCL 2 MG/ML VL/or syr IV ONE (22:30)
[2022-08-24] MEDS ORDERED: ONDANSETRON HCL 4 MG/2 ML VIAL IV ONE (22:30)
[2022-08-24] MEDS ORDERED: CIPROFLOXACIN 400MG/200ML 200 ML IV ONE (23:00)
[2022-08-25 02:21] LABS: Urine Bacteria NONE SEEN /hpf (None Seen); Urine Blood 3+ /uL (Negative); Urine WBC 439 /hpf (0 - 5); Urine WBC Clumps PRESENT /hpf (None Seen)
[2022-08-25 02:23] LABS: Urine Specific Gravity 1.039 (1.001-1.035)
[2022-08-25 03:51] VITALS: BP 135/86
[2022-08-25] MEDS ORDERED: SODIUM CHLORIDE 0.9% 500 ML IV ONE (04:15)
== END 2022-08-25 04:26 | disposition still patient (30) ==
LOC: EDBD 20:04 → ER 20:04
DX: T83.098A Other mechanical complication of other urinary catheter, initial encounter (principal); J44.9 Chronic obstructive pulmonary disease, unspecified; I10 Essential (primary) hypertension; E78.5 Hyperlipidemia, unspecified; E03.9 Hypothyroidism, unspecified; Z90.49 Acquired absence of other specified parts of digestive tract; Z90.89 Acquired absence of other organs; Z90.710 Acquired absence of both cervix and uterus; Z79.2 Long term (current) use of antibiotics; Z79.899 Other long term (current) drug therapy; Z88.8 Allergy status to other drugs, medicaments and biological substances
CPT/HCPCS: 36415; 74176; 80053; 81001; 85025; 96365; 96375; 99285; J0744; J1170; J2405; J7030

== ENCOUNTER 2022-08-30 15:12 | Emergency (ER) | payer OTHER ==
[~2022-08-30] VITALS: Ht 170.2 cm; Wt 136.4 kg
[2022-08-30 17:31] LABS: Urine Bacteria NONE SEEN /hpf (None Seen); Urine Blood 3+ /uL (Negative); Urine Hyaline Cast MOD /lpf (0 - 2); Urine Mucus FEW (None Seen); Urine Specific Gravity 1.021 (1.001-1.035); Urine WBC 2176 /hpf (0 - 5); Urine WBC Clumps PRESENT /hpf (None Seen)
[2022-08-30 18:17] LABS: Basophils # (auto) 0.1 10 ^3/uL (0-0.2); Eosinophils # (auto) 0.5 10 ^3/uL (0-0.8); Hematocrit 39.7 % (36.0-46.0); Hemoglobin 12.7 g/dL (12.2-16.2); Lymphocytes # (auto) 2.3 10 ^3/uL (0.4-5.4); Lymphocytes % (auto) 20.2 % (10.0-50.0); Mean Corpuscular Hgb Conc. 32.1 g/dL (32.0-36.0); Mean Corpuscular Volume 84.1 fL (80.0-100.0); Monocytes % (auto) 8.6 % (0.0-12.0); Neutrophils # (auto) 7.5 10 ^3/uL (1.6-8.6); Neutrophils % (auto) 66.2 % (37.0-80.0); Nucleated Red Blood Cells % 0.5 %; Red Blood Cells 4.72 10^6/uL (4.0-5.20); Red Cell Distribution Width 17.6 % (11.8-14.3); White Blood Cell 11.4 10^3/uL (4.4-10.8)
[2022-08-30 18:28] LABS: Calcium 8.6 mg/dL (8.5-10.1); Potassium 3.9 mmol/L (3.5-5.1)
[2022-08-30 18:34] LABS: Albumin 2.7 g/dL (3.4-5.0); BUN/Creatinine Ratio 17.2 (10.0-20.0); Bilirubin, Total 0.3 mg/dL (0.2-1.0); Total Protein 7.6 g/dL (6.4-8.2)
[2022-08-30] MEDS ORDERED: IOHEXOL 300 MG/ML 100ML BOTTLE IJ ONE (19:04)
[2022-08-30] MEDS ORDERED: IOHEXOL 350 MG/ML 100ML IJ ONE (20:00)
[2022-08-30] MEDS ORDERED: PIPERACILLIN-TAZOB 3.375GM 100 ML IV ONE (22:15)
[2022-08-31] MEDS ORDERED: HYDROmorphone HCL 2 MG/ML VL/or syr IV ONE (01:30)
[2022-08-31 05:58] VITALS: BP 119/67
== END 2022-08-31 06:28 | disposition short-term general hospital (02) ==
LOC: EDBD 15:12 → ER 15:12
DX: R10.84 Generalized abdominal pain (principal); J44.9 Chronic obstructive pulmonary disease, unspecified; E78.5 Hyperlipidemia, unspecified; I10 Essential (primary) hypertension; Z90.49 Acquired absence of other specified parts of digestive tract; Z90.710 Acquired absence of both cervix and uterus; Z16.12 Extended spectrum beta lactamase (ESBL) resistance; Z20.822 Contact with and (suspected) exposure to COVID-19; Z87.442 Personal history of urinary calculi; Z88.8 Allergy status to other drugs, medicaments and biological substances
CPT/HCPCS: 36415; 74177; 80053; 81001; 83605; 85025; 87040; 87077; 87086; 87088; 87186; 87426; 93005; 96365; 96366; 96375; 99285; J1170; J2543; Q9967

== ENCOUNTER 2022-10-25 22:17 | Emergency (ER) | payer OTHER ==
[~2022-10-25] VITALS: Ht 167.6 cm; Wt 136.4 kg
[2022-10-25 23:13] LABS: Basophils # (auto) 0.1 10 ^3/uL (0-0.2); Basophils % (auto) 0.6 % (0.0-2.0); Eosinophils # (auto) 0.2 10 ^3/uL (0-0.8); Eosinophils % (auto) 2.2 % (0.0-7.0); Hematocrit 39.3 % (36.0-46.0); Hemoglobin 12.2 g/dL (12.2-16.2); Lymphocytes # (auto) 1.4 10 ^3/uL (0.4-5.4); Mean Corpuscular Hemoglobin 28.5 pg (28.0-32.0); Mean Corpuscular Hgb Conc. 31.1 g/dL (32.0-36.0); Mean Corpuscular Volume 91.5 fL (80.0-100.0); Monocytes # (auto) 0.7 10 ^3/uL (0-1.3); Monocytes % (auto) 6.3 % (0.0-12.0); Neutrophils # (auto) 8.3 10 ^3/uL (1.6-8.6); Neutrophils % (auto) 77.9 % (37.0-80.0); Nucleated Red Blood Cells % 0.1 %; White Blood Cell 10.7 10^3/uL (4.4-10.8)
[2022-10-25 23:30] LABS: Calcium 9.1 mg/dL (8.5-10.1); Potassium 4.7 mmol/L (3.5-5.1)
[2022-10-25 23:33] LABS: Albumin 2.8 g/dL (3.4-5.0); Bilirubin, Total 0.2 mg/dL (0.2-1.0); Total Protein 7.9 g/dL (6.4-8.2)
[2022-10-26] MEDS ORDERED: OXYCODONE W/ ACETAMINOPHEN 5/325MG TABLET PO ONE
[2022-10-26 04:23] LABS: Urine Bacteria MANY /hpf (None Seen); Urine Blood Negative /uL (Negative); Urine Mucus MANY (None Seen); Urine WBC 453 /hpf (0 - 5); Urine WBC Clumps PRESENT /hpf (None Seen)
[2022-10-26] MEDS ORDERED: ONDANSETRON HCL 4 MG/2 ML VIAL IV ONE (05:45)
[2022-10-26] MEDS ORDERED: MORPHINE SULFATE 4 MG/ML SYR/VIAL IV ONE (05:45)
[2022-10-26] MEDS ORDERED: cefTRIAXone SOD 1,000 MG VL IM ONE (05:45)
[2022-10-26] MEDS ORDERED: CEPH-510 PO (05:46)
[2022-10-26] MEDS ORDERED: ONDANSETRON ODT 4 MG TAB PO ONE (10:00)
[2022-10-26 10:16] VITALS: BP 156/97
== END 2022-10-26 10:46 | disposition home or self-care (01) ==
LOC: EDBD 22:17 → EDUNIT# 22:17 → ER 22:23
DX: N39.0 Urinary tract infection, site not specified (principal); E86.0 Dehydration; J44.9 Chronic obstructive pulmonary disease, unspecified; E78.5 Hyperlipidemia, unspecified; I10 Essential (primary) hypertension; Z90.49 Acquired absence of other specified parts of digestive tract; Z90.710 Acquired absence of both cervix and uterus; Z87.442 Personal history of urinary calculi; Z88.6 Allergy status to analgesic agent
CPT/HCPCS: 36415; 71045; 74176; 80053; 81001; 83690; 84484; 85025; 93005; 96372; 96374; 96375; 99285; J0696; J2270; J2405; Q0162

== ENCOUNTER 2022-11-22 21:44 | Emergency (ER) | payer OTHER ==
[~2022-11-22] VITALS: Ht 162.6 cm; Wt 159.0 kg
[~2022-11-22 21:44] MED LIST changes: +CEPH-510 PO; +SIMV10TA20 PO; -SIMV10TA84 PO
[2022-11-23 07:40] VITALS: BP 127/46
[2022-11-23] MEDS ORDERED: OXYCODONE W/ ACETAMINOPHEN 5/325MG TABLET PO ONE (09:00)
== END 2022-11-23 09:09 | disposition home or self-care (01) ==
LOC: EDBD 21:44 → ER 21:48
DX: T83.091A Other mechanical complication of indwelling urethral catheter, initial encounter (principal); R33.9 Retention of urine, unspecified
CPT/HCPCS: 51702; 71250; 74176

== ENCOUNTER 2022-11-27 18:22 | Emergency (ER) | payer OTHER ==
[~2022-11-27] VITALS: Ht 167.6 cm; Wt 181.0 kg
[2022-11-28] MEDS ORDERED: OXYCODONE W/ ACETAMINOPHEN 5/325MG TABLET PO ONE (00:15)
[2022-11-28 03:55] VITALS: BP 149/58
[2022-11-28] MEDS ORDERED: NITR-87 PO (08:48)
== END 2022-11-28 04:00 | disposition home or self-care (01) ==
LOC: ER 18:22 → EDBD 18:22 → EDUNIT# 18:22 → ER 11-28 03:58
DX: M25.562 Pain in left knee (principal); M25.561 Pain in right knee; E66.01 Morbid (severe) obesity due to excess calories; J44.9 Chronic obstructive pulmonary disease, unspecified; E78.5 Hyperlipidemia, unspecified; Z68.44 Body mass index [BMI] 60.0-69.9, adult; Z46.59 Encounter for fitting and adjustment of other gastrointestinal appliance and device; Z90.49 Acquired absence of other specified parts of digestive tract; Z90.710 Acquired absence of both cervix and uterus; Z87.442 Personal history of urinary calculi
CPT/HCPCS: 51702

== ENCOUNTER 2022-11-28 04:34 | Emergency (ER) | payer OTHER ==
[~2022-11-28] VITALS: Ht 167.6 cm; Wt 181.0 kg
[2022-11-28 05:57] LABS: Urine Bacteria FEW /hpf (None Seen); Urine Blood 1+ /uL (Negative); Urine Hyaline Cast FEW /lpf (0 - 2); Urine Specific Gravity 1.026 (1.001-1.035); Urine WBC 465 /hpf (0 - 5)
[2022-11-28] MEDS ORDERED: NITR-87 PO (08:48)
[2022-11-28 08:49] VITALS: BP 127/71
[2022-11-28] MEDS ORDERED: cefTRIAXone SOD 1,000 MG VL IM ONE (09:00)
[2022-11-28] MEDS ORDERED: OXYCODONE W/ ACETAMINOPHEN 5/325MG TABLET PO ONE (09:00)
== END 2022-11-28 11:13 | disposition home or self-care (01) ==
LOC: ER 04:34
DX: N39.0 Urinary tract infection, site not specified (principal); M19.90 Unspecified osteoarthritis, unspecified site; J44.9 Chronic obstructive pulmonary disease, unspecified; E78.5 Hyperlipidemia, unspecified; I10 Essential (primary) hypertension; F32.9 Major depressive disorder, single episode, unspecified; Z87.442 Personal history of urinary calculi; Z90.49 Acquired absence of other specified parts of digestive tract; Z90.89 Acquired absence of other organs; Z90.710 Acquired absence of both cervix and uterus; Z88.8 Allergy status to other drugs, medicaments and biological substances; Z79.899 Other long term (current) drug therapy
CPT/HCPCS: 76856; 81001; 96372; 99285; J0696

== ENCOUNTER 2022-12-08 14:02 | Inpatient (IN) | payer OTHER ==
[~2022-12-08] VITALS: Ht 165.1 cm; Wt 146.5 kg
[~2022-12-08 14:02] MED LIST changes: +NITR-87 PO
[2022-12-08 15:16] VITALS: PULSE 70; RESP 18; O2SAT 90
[2022-12-08 16:34] VITALS: PULSE 62; RESP 16; O2SAT 94
[2022-12-08] MEDS ORDERED: PIPERACILLIN-TAZOB 3.375GM 100 ML IV ONE (17:15)
[2022-12-08] MEDS: IVERMECTIN 3 MG TAB PO ONE ×2 (18:00→18:49)
[2022-12-08 18:06] LABS: Basophils # (auto) 0.1 10 ^3/uL (0-0.2); Basophils % (auto) 0.6 % (0.0-2.0); Eosinophils # (auto) 0.3 10 ^3/uL (0-0.8); Hematocrit 33.1 % (36.0-46.0); Hemoglobin 10.4 g/dL (12.2-16.2); Lymphocytes # (auto) 1.3 10 ^3/uL (0.4-5.4); Lymphocytes % (auto) 11.5 % (10.0-50.0); Mean Corpuscular Hemoglobin 28.3 pg (28.0-32.0); Mean Corpuscular Hgb Conc. 31.5 g/dL (32.0-36.0); Mean Corpuscular Volume 89.8 fL (80.0-100.0); Monocytes # (auto) 0.9 10 ^3/uL (0-1.3); Monocytes % (auto) 8.4 % (0.0-12.0); Neutrophils # (auto) 8.6 10 ^3/uL (1.6-8.6); Neutrophils % (auto) 76.5 % (37.0-80.0); Nucleated Red Blood Cells % 0.2 %; Red Blood Cells 3.69 10^6/uL (4.0-5.20); Red Cell Distribution Width 16.3 % (11.8-14.3); White Blood Cell 11.3 10^3/uL (4.4-10.8)
[2022-12-08 18:19] LABS: Albumin 2.2 g/dL (3.4-5.0); Calcium 8.5 mg/dL (8.5-10.1); Potassium 3.9 mmol/L (3.5-5.1)
[2022-12-08 18:22] LABS: Bilirubin, Total 0.3 mg/dL (0.2-1.0); Total Protein 6.9 g/dL (6.4-8.2)
[2022-12-08 18:46] LABS: INR 1.11 (0.9-1.15); Partial Thromboplastin Time 51.3 SEC (24.5-34.5)
[2022-12-08 20:00] VITALS: PULSE 63; RESP 13; O2SAT 94
[2022-12-08] MEDS ORDERED: ACETAMINOPHEN 325 MG TAB PO PRN (21:00)
[2022-12-08] MEDS ORDERED: ALBUMIN 25% 100 ML IV ONE (21:00)
[2022-12-08] MEDS ORDERED: SODIUM CHLORIDE 0.9% 1,000 ML IV SCH (21:00)
[2022-12-08] MEDS ORDERED: DOCUSATE SOD 100 MG CAP PO PRN (21:00)
[2022-12-08] MEDS: HYDROcodone-ACET 5/325MG TAB PO PRN (23:13)
[2022-12-08] MEDS: FAMOTIDINE (10MG/ML) 2ML VL IV SCH (23:14)
[2022-12-08] MEDS: ATORVASTATIN 20 MG TAB PO SCH (23:14)
[2022-12-09] MEDS ORDERED: MORPHINE SULFATE INJ 2 MG/ml SYRG IV PRN (01:45)
[2022-12-09] MEDS ORDERED: NITROGLYCERIN 0.4 MG SL TAB SL PRN (01:45)
[2022-12-09] MEDS: HYDROcodone-ACET 5/325MG TAB PO PRN ×2 (03:22→11:28)
[2022-12-09 05:08] LABS: Hematocrit 30.2 % (36.0-46.0); Hemoglobin 9.8 g/dL (12.2-16.2); Mean Corpuscular Hemoglobin 29.3 pg (28.0-32.0); Mean Corpuscular Hgb Conc. 32.4 g/dL (32.0-36.0); Mean Corpuscular Volume 90.4 fL (80.0-100.0); Red Blood Cells 3.34 10^6/uL (4.0-5.20); Red Cell Distribution Width 16.5 % (11.8-14.3); White Blood Cell 11.6 10^3/uL (4.4-10.8)
[2022-12-09 05:12] LABS: Albumin 2.5 g/dL (3.4-5.0); Calcium 8.6 mg/dL (8.5-10.1); Potassium 4.1 mmol/L (3.5-5.1)
[2022-12-09 05:20] LABS: BUN/Creatinine Ratio 14.8 (10.0-20.0); Bilirubin, Total 0.3 mg/dL (0.2-1.0); Total Protein 6.9 g/dL (6.4-8.2)
[2022-12-09 06:01] VITALS: PULSE 68; RESP 18; O2SAT 98
[2022-12-09 06:13] LABS: Basophils % (manual) 0 (0.0-2.0); Blast Cells 0; Metamyelocytes % 0; Promyelocytes % 0; Reactive Lymphocytes 0
[2022-12-09 06:49] LABS: Urine Bacteria MANY /hpf (None Seen); Urine Blood 1+ /uL (Negative); Urine Budding Yeast LOADED /hpf (None Seen); Urine Mucus FEW (None Seen); Urine Specific Gravity 1.021 (1.001-1.035); Urine WBC 2333 /hpf (0 - 5); Urine WBC Clumps PRESENT /hpf (None Seen)
[2022-12-09] MEDS: LEVOTHYROXINE SODIUM 50 MCG TAB PO SCH (07:45)
[2022-12-09 08:59] LABS: Band Neutrophils % (manual) 3; Eosinophils % (manual) 2 (0-7); Lymphocytes % (manual) 9 (10.0-50.0); Monocytes % (manual) 5 (0-12); Myelocytes % 4
[2022-12-09] MEDS: cefTRIAXone 1GM/50ML D5W 50 ML IV SCH (11:03)
[2022-12-09] MEDS: FAMOTIDINE (10MG/ML) 2ML VL IV SCH ×2 (11:06→21:58)
[2022-12-09] MEDS: ASPirin 81 mg TAB PO SCH (11:07)
[2022-12-09] MEDS ORDERED: OXYCODONE W/ ACETAMINOPHEN 5/325MG TABLET PO PRN (13:45)
[2022-12-09] MEDS: OXYCODONE W/ ACETAMINOPHEN 5/325MG TABLET PO PRN ×2 (16:03→21:59)
[2022-12-09 19:41] VITALS: BP 126/66; PULSE 78; RESP 20; TEMP 98; O2SAT 97
[2022-12-09 20:00] VITALS: PULSE 62; RESP 21; O2SAT 99
[2022-12-09] MEDS: ATORVASTATIN 20 MG TAB PO SCH (21:59)
[2022-12-09 22:00] VITALS: BP 110/61; PULSE 62; RESP 21; TEMP 97.7; O2SAT 99
[2022-12-09] MEDS: NYSTATIN TOPICAL POWDER 15GM TOP SCH (22:20)
[2022-12-10] MEDS: OXYCODONE W/ ACETAMINOPHEN 5/325MG TABLET PO PRN ×2 (02:51→09:32)
[2022-12-10 05:00] VITALS: BP 123/53; PULSE 70; RESP 18; TEMP 98; O2SAT 95
[2022-12-10] MEDS: LEVOTHYROXINE SODIUM 50 MCG TAB PO SCH (07:00)
[2022-12-10 08:00] VITALS: BP 139/67; PULSE 70; RESP 14; TEMP 98; O2SAT 92
[2022-12-10 08:56] VITALS: BP 129/67; PULSE 70; RESP 14; TEMP 98; O2SAT 92
[2022-12-10] MEDS: FAMOTIDINE (10MG/ML) 2ML VL IV SCH ×2 (09:20→21:32)
[2022-12-10] MEDS: ASPirin 81 mg TAB PO SCH (09:20)
[2022-12-10] MEDS: cefTRIAXone 1GM/50ML D5W 50 ML IV SCH (09:20)
[2022-12-10] MEDS: NYSTATIN TOPICAL POWDER 15GM TOP SCH ×2 (09:21→21:33)
[2022-12-10 13:00] VITALS: BP 135/40; PULSE 79; RESP 16; TEMP 97.3; O2SAT 99
[2022-12-10] MEDS ORDERED: VANCOMYCIN 1GM/250ML 250 ML IV ONE (13:15)
[2022-12-10] MEDS ORDERED: VANCOMYCIN PER PHARMACY 0 MG IV SCH (13:15)
[2022-12-10 17:00] VITALS: BP 144/76; PULSE 65; RESP 16; TEMP 98.4; O2SAT 100
[2022-12-10 17:08] LABS: Albumin 2.4 g/dL (3.4-5.0); BUN/Creatinine Ratio 13.6 (10.0-20.0); Calcium 8.5 mg/dL (8.5-10.1); Phosphorus 2.4 mg/dL (2.5-4.90); Potassium 3.9 mmol/L (3.5-5.1)
[2022-12-10] MEDS ORDERED: NALOXONE HCL 0.4 MG/ML VIAL IV ONE (18:45)
[2022-12-10] MEDS: HYDROcodone-ACET 10/325MG TAB PO PRN ×2 (18:54→23:38)
[2022-12-10] MEDS: VANCOMYCIN 1GM/250ML 250 ML IV SCH (21:31)
[2022-12-10] MEDS: ATORVASTATIN 20 MG TAB PO SCH (21:32)
[2022-12-10] MEDS: ONDANSETRON HCL 4 MG/2 ML VIAL IV PRN (21:35)
[2022-12-10 22:00] VITALS: BP 135/74; PULSE 71; RESP 20; TEMP 97.5; O2SAT 95
[2022-12-11] MEDS: HYDROcodone-ACET 10/325MG TAB PO PRN ×5 (03:58→21:49)
[2022-12-11 05:00] VITALS: BP 122/71; PULSE 76; RESP 17; TEMP 97.7; O2SAT 94
[2022-12-11 06:20] LABS: Albumin 2.4 g/dL (3.4-5.0); Calcium 8.5 mg/dL (8.5-10.1)
[2022-12-11] MEDS: LEVOTHYROXINE SODIUM 50 MCG TAB PO SCH (06:22)
[2022-12-11] MEDS: VANCOMYCIN 1GM/250ML 250 ML IV SCH ×2 (06:22→16:42)
[2022-12-11 06:24] LABS: BUN/Creatinine Ratio 12.5 (10.0-20.0); Bilirubin, Total 0.2 mg/dL (0.2-1.0); Total Protein 6.6 g/dL (6.4-8.2)
[2022-12-11 08:48] VITALS: BP 130/67; PULSE 71; RESP 18; TEMP 97.4; O2SAT 95
[2022-12-11] MEDS: FAMOTIDINE (10MG/ML) 2ML VL IV SCH ×2 (09:04→21:51)
[2022-12-11] MEDS: ASPirin 81 mg TAB PO SCH (09:04)
[2022-12-11] MEDS: cefTRIAXone 1GM/50ML D5W 50 ML IV SCH (09:04)
[2022-12-11] MEDS: NYSTATIN TOPICAL POWDER 15GM TOP SCH ×2 (09:05→21:51)
[2022-12-11 13:00] VITALS: BP 108/60; PULSE 57; RESP 16; TEMP 98.1; O2SAT 97
[2022-12-11] MEDS: ONDANSETRON HCL 4 MG/2 ML VIAL IV PRN ×2 (15:04→20:36)
[2022-12-11 17:00] VITALS: BP 108/57; PULSE 61; RESP 14; TEMP 97.5; O2SAT 96
[2022-12-11 20:00] VITALS: RESP 18; O2SAT 94
[2022-12-11] MEDS: ATORVASTATIN 20 MG TAB PO SCH (21:49)
[2022-12-11 22:00] VITALS: BP 113/58; PULSE 65; RESP 18; TEMP 98.2; O2SAT 94
[2022-12-12] MEDS: MEROPENEM 1GM IVPB 100 ML IV SCH ×5 (00:46→17:56)
[2022-12-12] MEDS: HYDROcodone-ACET 10/325MG TAB PO PRN ×6 (02:23→21:39)
[2022-12-12] MEDS: VANCOMYCIN 1GM/250ML 250 ML IV SCH ×3 (03:00→16:18)
[2022-12-12 05:00] VITALS: BP 134/67; PULSE 69; RESP 19; TEMP 98.2; O2SAT 98
[2022-12-12 06:28] LABS: Basophils # (auto) 0.1 10 ^3/uL (0-0.2); Eosinophils # (auto) 0.5 10 ^3/uL (0-0.8); Eosinophils % (auto) 7.5 % (0.0-7.0); Hematocrit 33.3 % (36.0-46.0); Hemoglobin 10.4 g/dL (12.2-16.2); Lymphocytes # (auto) 1.6 10 ^3/uL (0.4-5.4); Lymphocytes % (auto) 24.2 % (10.0-50.0); Mean Corpuscular Hemoglobin 28.2 pg (28.0-32.0); Mean Corpuscular Hgb Conc. 31.1 g/dL (32.0-36.0); Mean Corpuscular Volume 90.7 fL (80.0-100.0); Monocytes # (auto) 0.8 10 ^3/uL (0-1.3); Monocytes % (auto) 11.5 % (0.0-12.0); Neutrophils # (auto) 3.7 10 ^3/uL (1.6-8.6); Neutrophils % (auto) 55.8 % (37.0-80.0); Nucleated Red Blood Cells % 0.2 %; Red Blood Cells 3.67 10^6/uL (4.0-5.20); Red Cell Distribution Width 16.3 % (11.8-14.3); White Blood Cell 6.7 10^3/uL (4.4-10.8)
[2022-12-12 06:40] LABS: BUN/Creatinine Ratio 13.7 (10.0-20.0); Calcium 8.6 mg/dL (8.5-10.1); Potassium 4.1 mmol/L (3.5-5.1)
[2022-12-12] MEDS: LEVOTHYROXINE SODIUM 50 MCG TAB PO SCH (06:47)
[2022-12-12 08:41] VITALS: BP 116/59; PULSE 66; RESP 18; TEMP 97.8; O2SAT 97
[2022-12-12] MEDS: FAMOTIDINE (10MG/ML) 2ML VL IV SCH ×3 (10:00→21:39)
[2022-12-12] MEDS: ASPirin 81 mg TAB PO SCH (10:48)
[2022-12-12] MEDS: NYSTATIN TOPICAL POWDER 15GM TOP SCH ×2 (10:52→21:43)
[2022-12-12 13:00] VITALS: BP 144/71; PULSE 74; RESP 16; TEMP 98.8; O2SAT 95
[2022-12-12] MEDS: ONDANSETRON HCL 4 MG/2 ML VIAL IV PRN ×3 (15:57→21:39)
[2022-12-12] MEDS: FLUCONAZOLE 200MG/100ML 100 ML IV SCH ×2 (16:18→16:42)
[2022-12-12 16:24] VITALS: BP 124/71; PULSE 85; RESP 20; TEMP 98.8; O2SAT 98
[2022-12-12 20:00] VITALS: PULSE 99; RESP 20; O2SAT 96
[2022-12-12] MEDS: ATORVASTATIN 20 MG TAB PO SCH (21:39)
[2022-12-12 22:00] VITALS: BP 157/67; PULSE 99; RESP 22; TEMP 98.4; O2SAT 96
[2022-12-13] MEDS: VANCOMYCIN 1GM/250ML 250 ML IV SCH (01:51)
[2022-12-13] MEDS: HYDROcodone-ACET 10/325MG TAB PO PRN (02:28)
[2022-12-13] MEDS: ONDANSETRON HCL 4 MG/2 ML VIAL IV PRN (03:47)
[2022-12-13] MEDS ORDERED: FLUCONAZOLE 200MG/100ML 100 ML IV SCH (16:00)
== END 2022-12-13 03:55 | disposition short-term general hospital (02) | DRG 872 ==
LOC: EDUNIT# 14:02 → EDBD 14:02 → ER 14:02 → OVERFLOW 12-09 01:42 → WEST WING 12-09 17:26
PROVIDERS: ADMIT Nurse Practitioner Family; ATTEND Internal Medicine Geriatric Medicine
PROC: 05HD33Z Insertion of Infusion Device into Right Cephalic Vein, Percutaneous Approach (ICD-10-PCS; principal; 2022-12-12)
PROC: B54MZZA Ultrasonography of Right Upper Extremity Veins, Guidance (ICD-10-PCS; 2022-12-12)
DX: A41.89 Other specified sepsis (principal); N39.0 Urinary tract infection, site not specified; E44.0 Moderate protein-calorie malnutrition; J96.10 Chronic respiratory failure, unspecified whether with hypoxia or hypercapnia; T74.01XA Adult neglect or abandonment, confirmed, initial encounter; F11.20 Opioid dependence, uncomplicated; Z68.43 Body mass index [BMI] 50.0-59.9, adult; Z20.822 Contact with and (suspected) exposure to COVID-19; I11.0 Hypertensive heart disease with heart failure; I50.9 Heart failure, unspecified; G89.29 Other chronic pain; F03.90 Unspecified dementia, unspecified severity, without behavioral disturbance, psychotic disturbance, mood disturbance, and anxiety; E78.5 Hyperlipidemia, unspecified; E03.9 Hypothyroidism, unspecified; D64.9 Anemia, unspecified; E66.01 Morbid (severe) obesity due to excess calories; M19.90 Unspecified osteoarthritis, unspecified site; J44.9 Chronic obstructive pulmonary disease, unspecified; E88.09 Other disorders of plasma-protein metabolism, not elsewhere classified; B96.89 Other specified bacterial agents as the cause of diseases classified elsewhere; B96.20 Unspecified Escherichia coli [E. coli] as the cause of diseases classified elsewhere; Z99.81 Dependence on supplemental oxygen; Z93.3 Colostomy status; Z93.2 Ileostomy status; Z90.710 Acquired absence of both cervix and uterus; Z87.442 Personal history of urinary calculi; Z74.01 Bed confinement status; Y92.89 Other specified places as the place of occurrence of the external cause; Z88.8 Allergy status to other drugs, medicaments and biological substances; Z90.49 Acquired absence of other specified parts of digestive tract
CPT/HCPCS: 36415; 74176; 80048; 80053; 80069; 80202; 81001; 84443; 85007; 85025; 85027; 85610; 85730; 87040; 87077; 87086; 87088; 87186; 87205; 87426; 96361; 96365; 96367; 97110; 97116; 97163; 97530; G0378; J0696; J1450; J2185; J2405; J2543; J3490; P9047

== ENCOUNTER 2022-12-28 22:04 | Inpatient (IN) | payer OTHER ==
[~2022-12-28] VITALS: Ht 165.1 cm; Wt 144.5 kg
[2022-12-28 22:42] LABS: Basophils # (auto) 0.1 10 ^3/uL (0-0.2); Basophils % (auto) 0.9 % (0.0-2.0); Eosinophils # (auto) 0.1 10 ^3/uL (0-0.8); Eosinophils % (auto) 0.9 % (0.0-7.0); Hematocrit 37.2 % (36.0-46.0); Hemoglobin 11.7 g/dL (12.2-16.2); Lymphocytes # (auto) 1.6 10 ^3/uL (0.4-5.4); Lymphocytes % (auto) 11.5 % (10.0-50.0); Mean Corpuscular Hemoglobin 28.4 pg (28.0-32.0); Mean Corpuscular Hgb Conc. 31.6 g/dL (32.0-36.0); Monocytes # (auto) 0.7 10 ^3/uL (0-1.3); Monocytes % (auto) 5.4 % (0.0-12.0); Neutrophils # (auto) 11.1 10 ^3/uL (1.6-8.6); Neutrophils % (auto) 81.3 % (37.0-80.0); Red Blood Cells 4.13 10^6/uL (4.0-5.20); Red Cell Distribution Width 17.2 % (11.8-14.3); White Blood Cell 13.6 10^3/uL (4.4-10.8)
[2022-12-28 22:57] LABS: BUN/Creatinine Ratio 17.4 (10.0-20.0); Calcium 8.8 mg/dL (8.5-10.1); Potassium 4.5 mmol/L (3.5-5.1)
[2022-12-28 23:00] LABS: Bilirubin, Total 0.4 mg/dL (0.2-1.0); Total Protein 7.6 g/dL (6.4-8.2)
[2022-12-29] VITALS (8 sets, daily range): BP systolic 134–150; BP diastolic 62–83; PULSE 91–117; RESP 16–20; TEMP 97.8–98.3; O2SAT 95–100
[2022-12-29] MEDS ORDERED: HYDROmorphone HCL 2 MG/ML VL/or syr IV ONE ×2 (01:45→02:45)
[2022-12-29] MEDS ORDERED: ONDANSETRON HCL 4 MG/2 ML VIAL IV ONE ×2 (01:45→12:00)
[2022-12-29] MEDS ORDERED: PERCOT PO (02:38)
[2022-12-29] MEDS ORDERED: ZOFR4T PO (02:38)
[2022-12-29] MEDS ORDERED: SODIUM CHLORIDE 0.9% 500 ML IV ONE (02:45)
[2022-12-29 03:12] LABS: Urine Bacteria FEW /hpf (None Seen); Urine Blood Negative /uL (Negative); Urine Budding Yeast MANY /hpf (None Seen); Urine Mucus FEW (None Seen); Urine Specific Gravity 1.039 (1.001-1.035); Urine WBC 146 /hpf (0 - 5)
[2022-12-29] MEDS ORDERED: cefTRIAXone 1GM/50ML D5W 50 ML IV ONE (07:15)
[2022-12-29] MEDS ORDERED: MORPHINE SULFATE 4 MG/ML SYR/VIAL IV ONE ×2 (07:30→12:00)
[2022-12-29] MEDS ORDERED: IOHEXOL 300 MG/ML 100ML BOTTLE IJ ONE (07:57)
[2022-12-29 08:09] LABS: Lactic Acid w/Reflex 2.6 mmol/L (0.4-2.0)
[2022-12-29] MEDS ORDERED: PIPERACILLIN-TAZOB 3.375GM 100 ML IV SCH (14:00)
[2022-12-29 15:08] LABS: INR 1.04 (0.9-1.15)
[2022-12-29] MEDS: SODIUM CHLORIDE 0.9% 1,000 ML IV SCH ×2 (15:55→23:15)
[2022-12-29] MEDS ORDERED: diphenhdrAMINE HCL 50 MG/1 ML VL IV ONE (16:15)
[2022-12-29] MEDS ORDERED: LEVALBUTEROL HCL 1.25 MG/3 ML NEB NEB SCH (18:00)
[2022-12-29] MEDS: IPRATROPIUM BROM 0.5 MG/2.5ML INH SOL NEB PRN (19:35)
[2022-12-29] MEDS: MORPHINE SULFATE 4 MG/ML SYR/VIAL IV PRN (21:26)
[2022-12-29] MEDS: DABIGATRAN ETEXILATE MESYLATE 110 MG PO SCH (22:00)
[2022-12-29] MEDS: traZODone HCL 50 MG TAB PO SCH (23:01)
[2022-12-29] MEDS: ATORVASTATIN 20 MG TAB PO SCH (23:02)
[2022-12-29] MEDS: busPIRone HCL 10 MG TAB PO SCH (23:03)
[2022-12-29] MEDS: PIPERACILLIN-TAZOB 3.375GM 100 ML IV SCH (23:03)
[2022-12-30] VITALS (16 sets, daily range): BP systolic 112–147; BP diastolic 61–74; PULSE 60–95; RESP 16–20; TEMP 98–98.5; O2SAT 93–100
[2022-12-30] MEDS: MORPHINE SULFATE 4 MG/ML SYR/VIAL IV PRN ×5 (02:05→23:22)
[2022-12-30] MEDS: ONDANSETRON HCL 4 MG/2 ML VIAL IV PRN ×4 (02:26→23:19)
[2022-12-30] MEDS: PIPERACILLIN-TAZOB 3.375GM 100 ML IV SCH ×4 (04:50→22:00)
[2022-12-30] MEDS: busPIRone HCL 10 MG TAB PO SCH ×3 (05:50→22:41)
[2022-12-30 06:12] LABS: Basophils # (auto) 0.1 10 ^3/uL (0-0.2); Eosinophils # (auto) 0.5 10 ^3/uL (0-0.8); Hematocrit 33.9 % (36.0-46.0); Hemoglobin 10.7 g/dL (12.2-16.2); Lymphocytes # (auto) 1.9 10 ^3/uL (0.4-5.4); Lymphocytes % (auto) 18.9 % (10.0-50.0); Mean Corpuscular Hemoglobin 28.7 pg (28.0-32.0); Mean Corpuscular Hgb Conc. 31.4 g/dL (32.0-36.0); Mean Corpuscular Volume 91.2 fL (80.0-100.0); Monocytes # (auto) 0.8 10 ^3/uL (0-1.3); Monocytes % (auto) 8.4 % (0.0-12.0); Neutrophils # (auto) 6.6 10 ^3/uL (1.6-8.6); Neutrophils % (auto) 66.7 % (37.0-80.0); Nucleated Red Blood Cells % 0.1 %; Red Blood Cells 3.72 10^6/uL (4.0-5.20); Red Cell Distribution Width 17.6 % (11.8-14.3); White Blood Cell 9.9 10^3/uL (4.4-10.8)
[2022-12-30 06:57] LABS: Albumin 2.5 g/dL (3.4-5.0); BUN/Creatinine Ratio 12.8 (10.0-20.0); Bilirubin, Total 0.3 mg/dL (0.2-1.0); Calcium 8.2 mg/dL (8.5-10.1); Total Protein 6.8 g/dL (6.4-8.2)
[2022-12-30] MEDS: LEVALBUTEROL HCL 1.25 MG/3 ML NEB NEB SCH ×3 (06:59→18:48)
[2022-12-30] MEDS: SODIUM CHLORIDE 0.9% 1,000 ML IV SCH ×2 (09:15→19:15)
[2022-12-30] MEDS: TAMSULOSIN HYDROCHLORIDE 0.4 MG CAP PO SCH (10:00)
[2022-12-30] MEDS: DABIGATRAN ETEXILATE MESYLATE 110 MG PO SCH ×2 (10:00→22:00)
[2022-12-30] MEDS: risperiDONE 1 MG TAB PO SCH (11:27)
[2022-12-30] MEDS: PANTOPRAZOLE 40 MG/10 ML VIAL INJ IV SCH (11:27)
[2022-12-30] MEDS: ATENOLOL 50 MG TAB PO SCH (11:28)
[2022-12-30] MEDS: IPRATROPIUM BROM 0.5 MG/2.5ML INH SOL NEB PRN (11:48)
[2022-12-30] MEDS: sulfaSALAzine 500 MG TAB PO SCH (11:51)
[2022-12-30] MEDS ORDERED: diphenhdrAMINE HCL 25 MG CAP PO PRN (22:30)
[2022-12-30] MEDS: ATORVASTATIN 20 MG TAB PO SCH (22:39)
[2022-12-30] MEDS: traZODone HCL 50 MG TAB PO SCH (22:39)
[2022-12-31] VITALS (13 sets, daily range): BP systolic 104–124; BP diastolic 47–68; PULSE 54–77; RESP 16–21; TEMP 97.7–98.6; O2SAT 90–100
[2022-12-31] MEDS: PIPERACILLIN-TAZOB 3.375GM 100 ML IV SCH ×4 (03:43→22:35)
[2022-12-31] MEDS: ONDANSETRON HCL 4 MG/2 ML VIAL IV PRN ×5 (03:43→21:20)
[2022-12-31] MEDS: MORPHINE SULFATE 4 MG/ML SYR/VIAL IV PRN ×5 (03:45→21:21)
[2022-12-31] MEDS: SODIUM CHLORIDE 0.9% 1,000 ML IV SCH (05:15)
[2022-12-31] MEDS: LEVALBUTEROL HCL 1.25 MG/3 ML NEB NEB SCH ×3 (06:02→19:19)
[2022-12-31] MEDS: IPRATROPIUM BROM 0.5 MG/2.5ML INH SOL NEB PRN ×3 (06:02→19:19)
[2022-12-31] MEDS: busPIRone HCL 10 MG TAB PO SCH ×3 (06:27→22:35)
[2022-12-31] MEDS: DABIGATRAN ETEXILATE MESYLATE 110 MG PO SCH ×2 (10:00→22:00)
[2022-12-31] MEDS: sulfaSALAzine 500 MG TAB PO SCH (10:49)
[2022-12-31] MEDS: PANTOPRAZOLE 40 MG/10 ML VIAL INJ IV SCH (10:49)
[2022-12-31] MEDS: risperiDONE 1 MG TAB PO SCH (10:50)
[2022-12-31] MEDS: TAMSULOSIN HYDROCHLORIDE 0.4 MG CAP PO SCH (10:50)
[2022-12-31] MEDS: ATENOLOL 50 MG TAB PO SCH (10:51)
[2022-12-31] MEDS: traZODone HCL 50 MG TAB PO SCH (22:34)
[2022-12-31] MEDS: ATORVASTATIN 20 MG TAB PO SCH (22:34)
[2023-01-01] VITALS (14 sets, daily range): BP systolic 106–125; BP diastolic 53–63; PULSE 63–89; RESP 16–22; TEMP 97.6–99.1; O2SAT 84–100
[2023-01-01] MEDS: PIPERACILLIN-TAZOB 3.375GM 100 ML IV SCH ×3 (04:07→15:41)
[2023-01-01] MEDS: SODIUM CHLORIDE 0.9% 1,000 ML IV SCH ×2 (04:08→04:38)
[2023-01-01] MEDS: MORPHINE SULFATE 4 MG/ML SYR/VIAL IV PRN ×2 (04:39→09:32)
[2023-01-01] MEDS: busPIRone HCL 10 MG TAB PO SCH ×3 (06:12→22:35)
[2023-01-01] MEDS: LEVALBUTEROL HCL 1.25 MG/3 ML NEB NEB SCH ×3 (06:41→19:26)
[2023-01-01] MEDS: IPRATROPIUM BROM 0.5 MG/2.5ML INH SOL NEB PRN ×2 (06:41→12:07)
[2023-01-01] MEDS: ATENOLOL 50 MG TAB PO SCH (09:08)
[2023-01-01] MEDS: TAMSULOSIN HYDROCHLORIDE 0.4 MG CAP PO SCH (09:08)
[2023-01-01] MEDS: risperiDONE 1 MG TAB PO SCH (09:08)
[2023-01-01] MEDS: PANTOPRAZOLE 40 MG/10 ML VIAL INJ IV SCH (09:08)
[2023-01-01] MEDS: sulfaSALAzine 500 MG TAB PO SCH (09:09)
[2023-01-01] MEDS: DABIGATRAN ETEXILATE MESYLATE 110 MG PO SCH (09:09)
[2023-01-01] MEDS ORDERED: OXYCODONE W/ ACETAMINOPHEN 5/325MG TABLET PO PRN (12:30)
[2023-01-01] MEDS ORDERED: MORPHINE SULFATE INJ 2 MG/ml SYRG IV PRN (12:30)
[2023-01-01] MEDS: traZODone HCL 50 MG TAB PO SCH (22:36)
[2023-01-02] MEDS ORDERED: PANTOPRAZOLE 40 MG TAB PO SCH (10:00)
== END 2023-01-01 23:43 | disposition short-term general hospital (02) | DRG 872 ==
LOC: ER 22:04 → EDBD 22:04 → TELE 12-29 13:05 → TELE-CENTR 12-29 18:39
PROVIDERS: ADMIT Internal Medicine; ATTEND Internal Medicine
DX: A41.9 Sepsis, unspecified organism (principal); N39.0 Urinary tract infection, site not specified; J96.10 Chronic respiratory failure, unspecified whether with hypoxia or hypercapnia; E44.0 Moderate protein-calorie malnutrition; F03.93 Unspecified dementia, unspecified severity, with mood disturbance; Z68.44 Body mass index [BMI] 60.0-69.9, adult; B96.89 Other specified bacterial agents as the cause of diseases classified elsewhere; I11.0 Hypertensive heart disease with heart failure; I50.9 Heart failure, unspecified; E78.5 Hyperlipidemia, unspecified; J44.9 Chronic obstructive pulmonary disease, unspecified; G89.29 Other chronic pain; E66.01 Morbid (severe) obesity due to excess calories; S31.104A Unspecified open wound of abdominal wall, left lower quadrant without penetration into peritoneal cavity, initial encounter; X58.XXXA Exposure to other specified factors, initial encounter; Z20.822 Contact with and (suspected) exposure to COVID-19; D64.9 Anemia, unspecified; E03.9 Hypothyroidism, unspecified; M54.50 Low back pain, unspecified; Z90.710 Acquired absence of both cervix and uterus; Z81.8 Family history of other mental and behavioral disorders; Z99.81 Dependence on supplemental oxygen; Z87.442 Personal history of urinary calculi; Z93.2 Ileostomy status; Z93.3 Colostomy status; Z90.49 Acquired absence of other specified parts of digestive tract; Y93.89 Activity, other specified; Y92.89 Other specified places as the place of occurrence of the external cause; Y99.8 Other external cause status
CPT/HCPCS: 36415; 71045; 73600; 74176; 74177; 80053; 81001; 83605; 83690; 83880; 84484; 85025; 85610; 87040; 87077; 87081; 87086; 87088; 87186; 87205; 87426; 94640; C9113; G0378; J0696; J2405; J2543

== ENCOUNTER 2023-01-29 15:03 | Emergency (ER) | payer OTHER ==
[~2023-01-29] VITALS: Ht 167.6 cm; Wt 83.0 kg
[~2023-01-29 15:03] MED LIST changes: +PERCOT PO; +ZOFR4T PO
[2023-01-29 17:31] LABS: Basophils # (auto) 0.1 10 ^3/uL (0-0.2); Eosinophils # (auto) 0.1 10 ^3/uL (0-0.8); Eosinophils % (auto) 1.7 % (0.0-7.0); Hematocrit 35.4 % (36.0-46.0); Hemoglobin 11.3 g/dL (12.2-16.2); Lymphocytes # (auto) 1.3 10 ^3/uL (0.4-5.4); Lymphocytes % (auto) 16.1 % (10.0-50.0); Mean Corpuscular Hemoglobin 29.1 pg (28.0-32.0); Mean Corpuscular Hgb Conc. 31.8 g/dL (32.0-36.0); Mean Corpuscular Volume 91.5 fL (80.0-100.0); Monocytes # (auto) 0.7 10 ^3/uL (0-1.3); Monocytes % (auto) 8.3 % (0.0-12.0); Neutrophils # (auto) 5.8 10 ^3/uL (1.6-8.6); Neutrophils % (auto) 72.9 % (37.0-80.0); Red Blood Cells 3.87 10^6/uL (4.0-5.20); Red Cell Distribution Width 17.6 % (11.8-14.3); White Blood Cell 7.9 10^3/uL (4.4-10.8)
[2023-01-29 17:53] LABS: Albumin 3.4 g/dL (3.2-4.8); Alkaline Phosphatase 67 U/L (46-116); Anion Gap 5.1 (5-15); Aspartate Aminotransferase 9 U/L (13-40); BUN/Creatinine Ratio 12.5 (10.0-20.0); Blood Urea Nitrogen 10 mg/dL (9-23); Carbon Dioxide 28.9 mmol/L (20-30); Chloride 105 mmol/L (98-107); Glucose 110 mg/dL (74-106); Lipase 35 U/L (12-53); Potassium 4.9 mmol/L (3.5-5.1); Sodium 139 mmol/L (136-145)
[2023-01-29 17:54] LABS: Bilirubin, Total < 0.2 mg/dL (0.2-1.0); Total Protein 6.2 g/dL (5.7-8.2)
[2023-01-29 17:55] LABS: Alanine Aminotransferase < 9 U/L (7-40)
[2023-01-29] MEDS ORDERED: OXYCODONE W/ ACETAMINOPHEN 5/325MG TABLET PO ONE (20:15)
[2023-01-29] MEDS ORDERED: PERCOT PO (22:08)
[2023-01-29 22:09] LABS: Urine Bacteria FEW /hpf (None Seen); Urine Blood 1+ /uL (Negative); Urine Clarity HAZY (Clear); Urine Color Yellow (Yellow); Urine Mucus FEW (None Seen); Urine Protein, UAD 1+ (Negative); Urine Specific Gravity 1.018 (1.001-1.035); Urine Urobilinogen Normal (Negative); Urine WBC 5 /hpf (0 - 5); Urine pH 8.5 (5.0-8.0)
[2023-01-29] MEDS ORDERED: CEPH500C PO (22:11)
[2023-01-30 08:00] VITALS: BP 154/50; PULSE 65; RESP 18; TEMP 98; O2SAT 98
== END 2023-01-30 09:17 | disposition home or self-care (01) ==
LOC: ER 15:03 → EDBD 15:03 → ER 01-30 08:26
DX: F11.23 Opioid dependence with withdrawal (principal); N39.0 Urinary tract infection, site not specified; G89.4 Chronic pain syndrome; R10.9 Unspecified abdominal pain; J44.9 Chronic obstructive pulmonary disease, unspecified; F32.9 Major depressive disorder, single episode, unspecified; I11.0 Hypertensive heart disease with heart failure; I50.89 Other heart failure; E78.5 Hyperlipidemia, unspecified; Z76.0 Encounter for issue of repeat prescription; Z79.899 Other long term (current) drug therapy; Z87.442 Personal history of urinary calculi; Z90.49 Acquired absence of other specified parts of digestive tract; Z90.89 Acquired absence of other organs; Z90.710 Acquired absence of both cervix and uterus; Y92.89 Other specified places as the place of occurrence of the external cause
CPT/HCPCS: 36415; 74176; 80053; 81001; 83605; 83690; 84484; 85025